=== PATIENT | male | born 1960 | race Caucasian/White ===

== ENCOUNTER 2017-01-14 15:34 | Inpatient (IN) | payer OTHER ==
[2017-01-14 20:03] LABS: % IMMATURE GRANULYOCYTES 0.2 % (0.0-1.1); ABSOLUTE IMMATURE GRANULOCYTES 0.02 10^3/uL (0.00-0.10); ADD DIFF? NO; ADD MORPH? NO; ADD SCAN? NO; ALANINE AMINOTRANSFERASE 100 IU/L (21-72); ALBUMIN 3.2 g/dL (3.5-5.0); ALKALINE PHOSPHATASE 86 IU/L (38-126); ANION GAP 9 mEq/L (8-16); ASPARTATE AMINOTRANSFERASE 33 IU/L (17-59); ATYPICAL LYMPHOCYTE FLAG 0 (0-99); BILIRUBIN,TOTAL 0.7 mg/dL (0.1-1.4); CALCIUM 9.1 mg/dL (8.5-10.4); CARBON DIOXIDE 25 mEq/l (22-31); CHLORIDE 102 mEq/L (97-110); CREATININE 0.6 mg/dL (0.7-1.3); FRAGMENT RBC FLAG 0 (0-99); GLOMERULAR FILTRATION RATE > 60; GLUCOSE 100 mg/dL (70-100); HEMOGLOBIN 9.9 g/dL (13.7-17.5); LEFT SHIFT FLG 0 (0-99); LIPEMIA HEMOLYSIS FLAG 80 (0-99); MEAN CELL HEMOGLOBIN 31.3 pg (27.9-34.1); MEAN CELL HEMOGLOBIN CONCENTR. 31.9 g/dL (32.4-36.7); MEAN CELL VOLUME 98.1 fL (81.5-99.8); MEAN PLATELET VOLUME 9.9 fL (8.7-11.7); PLATELET CLUMPS FLAG 0 (0-99); PLATELET COUNT 213 10^3/uL (150-400); POTASSIUM 3.6 mEq/L (3.5-5.2); RED BLOOD CELL COUNT 3.16 10^6/uL (4.40-6.38); RED CELL DISTRIBUTION WIDTH 13.8 % (11.5-15.2); SODIUM 136 mEq/L (134-144); TOTAL PROTEIN 6.5 g/dL (6.3-8.2)
[2017-01-14] MEDS ORDERED: ONDANSETRON DISINTEGRATING 4 MG TAB PO PRN (20:35)
[2017-01-14] MEDS ORDERED: ONDANSETRON 4 MG/2 ML VIAL IVP PRN (20:35)
[2017-01-14 20:49] LABS: SEDIMENTATION RATE 79 MM/HR (0-20)
--- NOTE | 2017-01-14 21:10 | GHP ---
[f rep st] HISTORY AND PHYSICAL DATE OF ADMISSION: 01/14/2017 CHIEF COMPLAINT: Abnormal echocardiogram. 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 He said a coupl e weeks ago he developed some fevers and chills and night sweats. There were no other symptoms at t hat time. He went to see his primary care doctor, thought he had might of had a new murmur and felt that he needed an echocardiogram anyway due to previous PVCs. He had his echocardiogram today whic h showed mitral regurgitation and a possible vegetation on the leaflet there. The patient stated th at he is actually feeling a lot better. He no longer has any fevers or chills. He does not have an y shortness of breath, chest pain. He has not had any recent dental procedures. No IV drug use. N o recent surgeries. REVIEW OF SYSTEMS: A 10-point review of systems was obtained and was negative. He does have a lot of chronic pain in his neck. His left shoulder also has some congenital abnormalities. PAST MEDICAL HISTORY: 1. Congenital disorder as above. 2. Hypothyroidism. 3. Depression. 4. Possible microcolitis. He is already on budesonide for that. MEDICATIONS: Reviewed. SOCIAL HISTORY: Quit smoking a year ago. He is using nicotine gum. Occasional alcohol. FAMILY HISTORY: Father had pancreatic cancer. PHYSICAL EXAM: VITAL SIGNS: Afebrile, blood pressure is 128/65, heart rate 77, oxygen saturation 9 4% on room air. GENERAL: The patient is well-developed but in no apparent distress. HEENT: Nonic teric sclerae. Extraocular movements intact. Moist mucous membranes. NECK: Supple with no thyrom egaly. LUNGS: Good effort. Clear to auscultation bilaterally. CARDIOVASCULAR: Regular rate and rhythm. There is 2/6 systolic murmur heard best at the apex. ABDOMEN: Positive bowel sounds, soft , nontender, nondistended. No hepatosplenomegaly. EXTREMITIES: No clubbing, cyanosis, or edema. SKIN: Without rash, intact. NEURO: Alert and oriented x3. Moving all 4 extremities equally. PSY CHIATRIC: Normal affect. LABS: White blood cell count normal, hemoglobin is 9.9. Chemistry is fairly normal. ASSESSMENT: This is a 56-year-old male presenting with heart murmur, previous fevers and chills alt abby they have resolved. The concern is endocarditis. 1. Rule out endocarditis. It is interesting the patient is not endorsing any infectious symptoms a t this time. He says that they have all resolved. He does not have elevated white blood cell count . He has no fever. I discussed the case with the Per Diem Interpreter who read the echo today. He said th at he does have mitral regurgitation and a possible vegetation. However, clinically does not seem t o have endocarditis noted and definitely has a good reason why he would have endocarditis. We will hold off on antibiotics tonight. Patient is definitely not toxic appearing. We will get Infectious Disease to see him in the morning. We need to get the echocardiogram results. Of note, [place] might be quite difficult in him as his congenital abnormalities make it quite difficult throat anatomy. He says that he needed his gallbladder taken out several years ago and they were unable to intubate him at all and he still has his gallbladder. 2. Hypertension. Continue medications. 3. Hypothyroidism. ADMISSION: Patient will be admitted under full admission status. Case discussed with his Cardiolog ist. /[id number]/MODL
[2017-01-15] MEDS: LEVOTHYROXINE 137 MCG TAB PO SCH (05:06)
[2017-01-15] MEDS: DULoxetine 60 MG CAP PO SCH (08:29)
[2017-01-15] MEDS: LISINOPRIL 10 MG TAB PO SCH (08:30)
[2017-01-15] MEDS: ACETAMINOPHEN 325 MG TAB PO PRN (08:33)
--- NOTE | 2017-01-15 08:48 | CPEKG ---
Heart Rate: 68 RR Interval: 882 P-R Interval: 160 QRSD Interval: 134 QT Interval: 424 QTC Interval: 451 P [place]: 55 QRS [place]: -53 T Wave [place]: 86 EKG Severity - ABNORMAL ECG - EKG Impression: SINUS RHYTHM EKG Impression: VENTRICULAR PREMATURE COMPLEX EKG Impression: NONSPECIFIC IVCD WITH LAD EKG Impression: ANTERIOR INFARCT, recent Electronically Signed By: Geremias Oviedo 15-Jan-2017 10:47:17
[2017-01-15] MEDS ORDERED: BUDESONIDE 9 MG PO SCH (09:00)
[2017-01-15] MEDS ORDERED: VANCOMYCIN 1.25 GM in D5W 250 ML IV SCH (10:30)
--- NOTE | 2017-01-15 10:34 | HOSPPROG ---
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 ID to see 2. start vancomycin 3. repeat blood cx after 48 hours of abx 4. colon possible source solitary kidney: no gentamicin follow vanc levels colitis: not active continue budesonice proph: lmwh dispo: inpt Subjective: blood cx + for gm+ cocci in chains. mikey d/w dr diaz. no events tele (interp by me) Objective: Vital Signs Temp Pulse Resp BP Pulse Ox 36.8 C 65 14 128/66 H 97 01/15/17 08:00 01/15/17 08:00 01/15/17 08:00 01/15/17 08:00 01/15/17 08:00 Laboratory Results 01/14/17 19:36 01/14/17 19:36 01/14/17 01/15/17 01/16/17 05:59 05:59 05:59 Intake Total 280 Balance 280 - Physical Exam Constitutional: no apparent distress, appears nourished Eyes: PERRL, anicteric sclera Ears, Nose, Mouth, Throat: moist mucous membranes, hearing normal Cardiovascular: regular rate and rhythym, systolic murmur, No tachycardia Respiratory: no respiratory distress, no rales or rhonchi Gastrointestinal: normoactive bowel sounds, soft, non-tender abdomen Genitourinary: no bladder fullness, No stewart in urethra Skin: warm, normal color Musculoskeletal: full muscle strength Neurologic: AAOx3
[2017-01-15 13:32] LABS: ALBUMIN 2.9 g/dL (3.5-5.0); BILIRUBIN,TOTAL 0.6 mg/dL (0.1-1.4); BILIRUBIN-CONJUGATED 0.5 mg/dL (0.0-0.5); BILIRUBIN-UNCONJUGATED 0.1 mg/dL (0.0-1.1); TOTAL PROTEIN 5.7 g/dL (6.3-8.2)
--- NOTE | 2017-01-15 14:00 | PDCARCONS ---
Cardiology Consult Reason for Consult: Acute mitral regurgitation Chief Complaint: Not feeling well Requesting Physician: Ivelisse History of Present Illness: 56-year-old male with severe spinal orthopedic issues related to congenital anomalies admitted to the hospital with an abnormal echocardiogram showing severe mitral regurgitation with a ruptured papillary muscle. Patient was in his usual state of good health until several weeks ago. He began experiencing 1 night of fever and chills. He was somewhat cool and clammy. He did feel a back pain that was sharp at resolved. Since that time he has been feeling rough. He has had night sweats. He has had no significant shortness of breath , PND, orthopnea. He has had no palpitations syncope or near syncope. He has no prior cardiovascular history. Surgical history includes fusion of his neck. He was post have a cholecystectomy but this was complicated by inability to be intubated. He supposedly has a deviated trachea which has made this difficult in the past. History Information - Allergies/Home Medication List Allergies/Adverse Reactions: No Known Allergies Allergy (Unverified 02/13/12 12:50) Home Medications: Budesonide [Uceris] 9 mg PO DAILY 01/14/17 [Last Taken 01/14/17] DULoxetine [Cymbalta 60 MG (*)] 60 mg PO DAILY 01/14/17 [Last Taken 01/14/17] Levothyroxine Sodium [Levothyroxine Sodium] 137 mcg PO DAILY 01/14/17 [Last Taken 01/14/17] Lisinopril [Lisinopril] 10 mg PO DAILY 01/14/17 [Last Taken 01/14/17] traZODone HCL [Trazodone HCl] 300 mg PO HS PRN 01/14/17 [Last Taken Unknown] I have personally reviewed and updated: family history, medical history, social history, surgical history - Social History Smoking Status: Former smoker Physical Exam Temp Pulse Resp BP Pulse Ox 36.8 C 71 17 124/73 H 96 01/15/17 12:00 01/15/17 12:00 01/15/17 12:00 01/15/17 12:00 01/15/17 12:00 O2 (L/minute) 1 Lab and Imaging 01/14/17 19:36 01/14/17 19:36 WBC 8.47 10^3/uL (3.80-9.50) 01/14/17 19:36 RBC 3.16 10^6/uL (4.40-6.38) L 01/14/17 19:36 Hgb 9.9 g/dL (13.7-17.5) L 01/14/17 19:36 Hct 31.0 % (40.0-51.0) L 01/14/17 19:36 MCV 98.1 fL (81.5-99.8) 01/14/17 19:36 MCH 31.3 pg (27.9-34.1) 01/14/17 19:36 MCHC 31.9 g/dL (32.4-36.7) L 01/14/17 19:36 RDW 13.8 % (11.5-15.2) 01/14/17 19:36 Plt Count 213 10^3/uL (150-400) 01/14/17 19:36 MPV 9.9 fL (8.7-11.7) 01/14/17 19:36 Neut % (Auto) 79.6 % (39.3-74.2) H 01/14/17 19:36 Lymph % (Auto) 11.1 % (15.0-45.0) L 01/14/17 19:36 [place] % (Auto) 7.0 % (4.5-13.0) 01/14/17 19:36 Eos % (Auto) 1.4 % (0.6-7.6) 01/14/17 19:36 Baso % (Auto) 0.7 % (0.3-1.7) 01/14/17 19:36 Nucleat RBC Rel Count 0.0 % (0.0-0.2) 01/14/17 19:36 Absolute Neuts (auto) 6.74 10^3/uL (1.70-6.50) H 01/14/17 19:36 Absolute Lymphs (auto) 0.94 10^3/uL (1.00-3.00) L 01/14/17 19:36 Absolute Monos (auto) 0.59 10^3/uL (0.30-0.80) 01/14/17 19:36 Absolute Eos (auto) 0.12 10^3/uL (0.03-0.40) 01/14/17 19:36 Absolute Basos (auto) 0.06 10^3/uL (0.02-0.10) 01/14/17 19:36 Absolute Nucleated RBC 0.00 10^3/uL (0-0.01) 01/14/17 19:36 Immature Gran % 0.2 % (0.0-1.1) 01/14/17 19:36 Immature Gran # 0.02 10^3/uL (0.00-0.10) 01/14/17 19:36 ESR 79 MM/HR (0-20) H 01/14/17 19:36 Sodium 136 mEq/L (134-144) 01/14/17 19:36 Potassium 3.6 mEq/L (3.5-5.2) 01/14/17 19:36 Chloride 102 mEq/L (97-110) 01/14/17 19:36 Carbon Dioxide 25 mEq/l (22-31) 01/14/17 19:36 Anion Gap 9 mEq/L (8-16) 01/14/17 19:36 BUN 16 mg/dL (7-23) 01/14/17 19:36 Creatinine 0.6 mg/dL (0.7-1.3) L 01/14/17 19:36 Estimated GFR > 60 01/14/17 19:36 Glucose 100 mg/dL (70-100) 01/14/17 19:36 Calcium 9.1 mg/dL (8.5-10.4) 01/14/17 19:36 Total Bilirubin 0.6 mg/dL (0.1-1.4) 01/15/17 12:45 Conjugated Bilirubin 0.5 mg/dL (0.0-0.5) 01/15/17 12:45 Unconjugated Bilirubin 0.1 mg/dL (0.0-1.1) 01/15/17 12:45 AST 30 IU/L (17-59) 01/15/17 12:45 ALT 86 IU/L (21-72) H 01/15/17 12:45 Alkaline Phosphatase 79 IU/L (38-126) 01/15/17 12:45 Total Protein 5.7 g/dL (6.3-8.2) L 01/15/17 12:45 Albumin 2.9 g/dL (3.5-5.0) L 01/15/17 12:45 Procalcitonin 0.23 ng/mL (0.02-0.10) H 01/14/17 19:36 A/P Assessment: Discussion: 56-year-old male admitted with a ruptured papillary muscle in acute mitral regurgitation. He is currently not in heart failure. Blood cultures do suggest the possibility of endocarditis as etiology. Recommend continued empiric antibiotics. Will plan for surgical evaluation once clinically stable. Patient will need careful surgical evaluation prior to proceeding as intubation has been difficult in the past. Will have a formal anesthesia consult to determine how best to do this. Clearly he will need a right and left heart catheterization prior intervention. At the present time there are no acute indications for surgical evaluation emergently. Past Medical History - Medical/Surgical History Hx Asthma: No Hx Chronic Respiratory Disease: No Hx Cardiac Disease: No Hx Diabetes: No Hx Renal Disease: Yes Hx Alcoholism: No Hx Cirrhosis: No Hx HIV/AIDS: No Hx Splenectomy or Spleen Trauma: No Other PMH: defect, spinal stenosis, no left lung, no left kidney, migraines - Social History Smoking Status: Former smoker Review of Systems - Review of Systems Constitutional: chills, fever. denies: weight loss EENTM: no symptoms reported Respiratory: no symptoms reported Cardiac: no symptoms reported Gastrointestinal/Abdominal: abdominal pain Genitourinary: no symptoms Musculoskelatal: back pain Skin: no symptoms Neurological: no symptoms Hematologic/Lymphatic: no symptoms reported Immunologic/allergic: no symptoms reported
--- NOTE | 2017-01-15 15:08 | GCON ---
[f rep st] CONSULTATION INFECTIOUS DISEASE CONSULTATION DATE OF CONSULTATION: 01/15/2017 REASON FOR CONSULTATION: Mitral valve endocarditis. 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 He was seen by his primary care on December 30, at which time he underwent lab work and was found to have mild anemia and a mild left shift. Over this time period, over the last month, the patient's chills and sweats have somewhat subsided. Of note , patient reports that he has had persistent diarrhea and gas which he relates to his untreated microscopic colitis. He denies any specific dental pain and he has dentures above but has not seen a dentist for 10 years but has no dental pain. The patient describes an 18-pound weight loss over the last 6 months, but no changes in his appetite. He reports a chronic low appetite, eating approximately once daily at baseline. He denies any specific skin injuries or respiratory symptoms. He has no shortness of breath. He has chronic headaches but none different than the baseline. Patient's primary care, upon evaluation on the , ordered an echocardiogram as he detected a new systolic murmur, and patient underwent echocardiogram yesterday by Dr. Oviedo in which patient was found to have an ejection fraction of 65%, mild concentric hypertrophy, mildly dilated atrium bilaterally, and a vegetation on the posterior mitral leaflet. He also had moderately elevated right ventricular systolic pressure consistent with pulmonary hypertension. Subsequently, patient was directly admitted to the hospital. Blood cultures, and labs were obtained. In less than 24 hours, 1of 2 positive blood cultures grew GPCs in chains. The patient was subsequently started on IV vancomycin. Today patient feels generally well and has no specific complaints. He does state that he started a new medicine for his microscopic colitis called Randell 6 days ago with clinical improvement in diarrhea. PAST MEDICAL HISTORY: 1. Migraines. 2. Hypothyroidism. 3. Hypertension. 4. Microscopic colitis diagnosed in June of 2016, managed by Dr. Richter. 5. 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 SOCIAL HISTORY: The patient without recent travel. He has a longstanding tobacco history with 1 pack a day but quit 1-1/2 years ago. He rarely uses alcohol, 1-2 alcoholic beverages every other weekend. He is single and has a pet treviño. FAMILY HISTORY: Reviewed and noncontributory. MEDICATIONS: Vancomycin IV 1.25 G Q 12, LISINOPRIL 10 MG DAILY, SYNTHROID 137 MCG DAILY, LOVENOX 40 MG SUBCU DAILY, CYMBALTA 60 MG DAILY, VALIUM 5 MG NEEDED, TRAZODONE 300 MG AT BEDTIME P.R.N. ALLERGIES: NKDA REVIEW OF SYSTEMS: A complete 10-point review of systems was performed and is negative, except as mentioned in the HPI. Patient is sad as his mother recently . PHYSICAL EXAMINATION: VITAL SIGNS: Blood pressure 128/66, heart rate 65, respiratory rate 14, saturation 97% on room air, temperature 36.8. He has been afebrile. GENERAL: This is a very pleasant male with obvious congenital deformities, sitting in bed in no acute distress. HEENT: The patient has no conjunctival hemorrhages. Pupils are reactive bilaterally. Oropharynx: Moist mucous membranes. Dentures above. Lower residual teeth with obvious prior dental work but no obvious caries. Gums were without signs of bleeding. NECK: No tenderness to palpation. The patient had limited range of motion of his neck from prior surgeries. CARDIOVASCULAR: Patient with a regular rate and rhythm. He has a prominent systolic murmur that was heard throughout the exam field but loudest at the apex. CHEST: Clear. He has no use of accessory respiratory muscles. ABDOMEN: Soft, nontender. Bowel sounds are present. EXTREMITIES: Patient has no splinter hemorrhages, Janeway lesions or Osler's nodes. He had onychomycosis of his toenails. SKIN: No rashes. LABORATORY DATA: White count is 8.4, hematocrit 31, platelets of 213, 79% neutrophils. Creatinine 0.6. Procalcitonin is 0.23. Blood cultures 1 out of 2 positive for GPCs in chains. ID PCR is pending. ASSESSMENT AND PLAN: This is a 56-year-old male with congenital deformity resulting in no left lung and no left kidney who was found to have a new systolic murmur in the setting of sweats and chills and subsequently had an echo that showed mitral valve vegetation and moderate to severe mitral insufficiency and now taken with blood cultures positive for gram-positive cocci in chains consistent with mitral valve endocarditis. Two primary sources of concern include dental or gastrointestinal. We will await ID of organism and do further evaluation based on presumed source. RECOMMENDATIONS: 1. Would start IV vancomycin 1.25 g IV q.12 with a trough before a 4th dose, taking patient's weight of 80 pounds. He has a normal creatinine but only 1 kidney. 2. Reviewed with patient that he will need 4-6 weeks of IV antibiotic therapy, requiring placement of PICC line after blood cultures are cleared. 3. Will place PICC line after blood cultures are negative 48 hours. Would repeat blood cultures after 48 hours of antibiotics. 4. Would obtain baseline chest x-ray. 5. Involve Cardiology to assess risks benefits of surgical intervention in the setting of moderate to severe mitral insufficiency Time was 75 minutes, greater than 50% time spent with education and counseling regarding the treatment of mitral valve endocarditis, risks and benefits, placement of PICC line, and coordination of care with primary team. /[id number]/MODL MTDD
[2017-01-15] MEDS ORDERED: IOPAMIDOL (ISOVUE-300) 100 ML BTL ONE (16:42)
[2017-01-15] MEDS ORDERED: DIAZEPAM 5 MG TAB PO ONE (17:30)
[2017-01-15] MEDS: cefTRIAXone 2 GM in D5W 50 ML IV SCH (17:44)
[2017-01-16] MEDS: LEVOTHYROXINE 137 MCG TAB PO SCH (07:17)
[2017-01-16] MEDS: cefTRIAXone 2 GM in D5W 50 ML IV SCH (09:07)
[2017-01-16] MEDS: LISINOPRIL 10 MG TAB PO SCH (09:07)
[2017-01-16] MEDS: BUDESONIDE 9 MG PO SCH (09:08)
[2017-01-16] MEDS: DULoxetine 60 MG CAP PO SCH (09:08)
--- NOTE | 2017-01-16 11:58 | SOAPPROG ---
SOAP Progress Note Assessment/Plan: Assessment: 1. Strep endocarditis. 2. Severe mitral regurgitation with vegetations/rupture of the papillary muscle. 3. Klippel Feil syndrome Discussion: CT scan yesterday shows no obstruction of the airway below the vocal cords. While the left lung is slightly smaller it does not appear to be hypoplastic. He is missing left kidney. Cultures reveal strep species. At this point he is not having signs or symptoms of congestive heart failure. He has had no recurrent fever. Medical therapy versus medical and surgical therapy have been discussed. Patient has longstanding depression related to his congenital anomalies. No absolute indication for surgery at this time. Plan: IV antibiotics. Surgical evaluation. 01/16/17 11:53 Subjective: No events overnight. In particular he denies shortness of breath, PND, orthopnea. He has had no palpitations syncope or near syncope. He has been seen by surgery. He is considering his options. Patient denies fever or chills. He has had no change in mental status. Objective: Microbiology 01/14/17 19:36 Blood Blood Panel (PCR) - Final Streptococcus 01/14/17 19:36 Blood Blood Culture - Preliminary 01/14/17 19:36 Blood Alpha Strep Not Pneumoniae 01/14/17 19:00 Blood Blood Culture - Preliminary Alpha Strep Not Pneumoniae Vital Signs Temp Pulse Resp BP Pulse Ox 36.8 C 78 20 122/43 H 90 L 01/16/17 11:34 01/16/17 11:34 01/16/17 11:34 01/16/17 11:34 01/16/17 11:34 Microbiology 01/14/17 19:36 Blood Panel (PCR) - Final Blood Streptococcus Laboratory Results 01/14/17 19:36 01/14/17 19:36 01/15/17 01/16/17 01/17/17 05:59 05:59 05:59 Intake Total 280 1820 Balance 280 1820 Physical Exam - Physical Exam General Appearance: alert, no apparent distress Cardiac/Chest: regular rate, rhythm, systolic murmur, No edema, No JVD Abdomen: normal bowel sounds, non-tender ICD10 Worksheet Patient Problems: Problems Problem Status Onset Mitral regurgitation Acute Review of Systems - Review of Systems Constitutional: denies: chills, fever EENTM: no symptoms reported Respiratory: no symptoms reported Cardiac: no symptoms reported Gastrointestinal/Abdominal: no symptoms reported Genitourinary: no symptoms
--- NOTE | 2017-01-16 12:20 | HOSPPROG ---
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 here w likely SBE Strep Bacterial endocarditis * On IV ceftriaxone * Considering surgery * Id following Mitral regurgitation due to above * Not particularly symptomatic solitary kidney colitis: not active continue budesonice Klippel-Fiel Syndrome * CT scan of the neck does not show any tracheal stenosis * Has had difficulty with intubation in the past * It appears that he does have a left lung proph: lmwh Subjective: No new complaints. Is thinking about surgery. Does feel depressed. Is having some back pain which is chronic Objective: Vital Signs Temp Pulse Resp BP Pulse Ox 36.8 C 78 20 122/43 H 90 L 01/16/17 11:34 01/16/17 11:34 01/16/17 11:34 01/16/17 11:34 01/16/17 11:34 Microbiology 01/14/17 19:36 Blood Panel (PCR) - Final Blood Streptococcus Laboratory Results 01/14/17 19:36 01/14/17 19:36 01/15/17 01/16/17 01/17/17 05:59 05:59 05:59 Intake Total 280 1820 Balance 280 1820 - Physical Exam Constitutional: no apparent distress, appears nourished, not in pain Eyes: anicteric sclera, EOMI Ears, Nose, Mouth, Throat: moist mucous membranes, hearing normal Cardiovascular: regular rate and rhythym, systolic murmur Respiratory: no respiratory distress Gastrointestinal: normoactive bowel sounds, soft, non-tender abdomen, no palpable masses Skin: warm Neurologic: AAOx3 Psychiatric: interacting appropriately, not anxious, not encephalopathic, thought process linear ICD10 Worksheet Patient Problems: Problems Problem Status Onset Mitral regurgitation Acute
[2017-01-16] MEDS: DIAZEPAM 5 MG TAB PO PRN ×2 (16:13→22:09)
[2017-01-16] MEDS: ENOXAPARIN 40 MG/0.4 ML SYR SC SCH (16:14)
--- NOTE | 2017-01-16 18:47 | PCMIDPN ---
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 Patient has underlying congenital syndrome which likely increased chances for development of infectious endocarditis over time. Suspect this is likely going to be oral christen. Agree with continued ceftriaxone coverage. Plan: 1. Continue IV ceftriaxone. 2. Follow up blood cultures. 3. Follow clinical course. 4. Plan PICC line and home IV antibiotic arrangement following clearance documentation. 01/16/17 18:44 01/16/17 18:45 Subjective: Patient is resting comfortably in his hospital bed. He denies any new complaint. States he feels somewhat better but still feels fatigued. No fevers or chills currently. Tolerating ceftriaxone. Objective: Ceftriaxone #2 Vital Signs Temp Pulse Resp BP Pulse Ox 36.7 C 67 17 111/67 97 01/16/17 15:35 01/16/17 15:35 01/16/17 15:35 01/16/17 15:35 01/16/17 15:35 Microbiology 01/14/17 19:36 Blood Panel (PCR) - Final Blood Streptococcus Laboratory Results 01/14/17 19:36 01/14/17 19:36 01/15/17 01/16/17 01/17/17 05:59 05:59 05:59 Intake Total 280 1820 150 Balance 280 1820 150 ESR 79 MM/HR (0-20) H 01/14/17 19:36 - Physical Exam General Appearance: WD/WN, alert, no apparent distress, non-toxic Respiratory: lungs clear, normal breath sounds, No respiratory distress Cardiac/Chest: regular rate, rhythm, systolic murmur, No tachycardia, No friction rub Extremities: non-tender, normal inspection Skin: normal color, warm/dry, No rash Neuro/Psych: alert, normal mood/affect, oriented x 3 ICD10 Worksheet Patient Problems: Problems Problem Status Onset Mitral regurgitation Acute
[2017-01-17] MEDS: LEVOTHYROXINE 137 MCG TAB PO SCH (07:50)
[2017-01-17] MEDS: ACETAMINOPHEN 325 MG TAB PO PRN ×3 (09:42→21:02)
[2017-01-17] MEDS: DIAZEPAM 5 MG TAB PO PRN ×3 (09:43→21:02)
[2017-01-17] MEDS: ENOXAPARIN 40 MG/0.4 ML SYR SC SCH (09:43)
[2017-01-17] MEDS: DULoxetine 60 MG CAP PO SCH (09:43)
[2017-01-17] MEDS: cefTRIAXone 2 GM in D5W 50 ML IV SCH (09:44)
[2017-01-17] MEDS: LISINOPRIL 10 MG TAB PO SCH (09:44)
[2017-01-17] MEDS: BUDESONIDE 9 MG PO SCH (09:47)
--- NOTE | 2017-01-17 13:05 | HOSPPROG ---
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 here w likely SBE alpha Strep Bacterial endocarditis * On IV ceftriaxone * Considering surgery * Id following * repeat cultures pending Mitral regurgitation due to above * Not particularly symptomatic solitary kidney colitis: not active continue budesonice Klippel-Fiel Syndrome * CT scan of the neck does not show any tracheal stenosis * Has had difficulty with intubation in the past * It appears that he does have a left lung proph: lmwh Subjective: no new complaints Objective: Vital Signs Temp Pulse Resp BP Pulse Ox 36.7 C 71 14 121/61 H 93 01/17/17 11:42 01/17/17 11:42 01/17/17 11:42 01/17/17 11:42 01/17/17 11:42 Microbiology 01/14/17 19:00 Blood Culture - Final Blood Streptococcus Anginosus Group 01/14/17 19:36 Blood Culture - Final Blood Streptococcus Anginosus Blood Panel (PCR) - Final Streptococcus Laboratory Results 01/14/17 19:36 01/14/17 19:36 01/16/17 01/17/17 01/18/17 05:59 05:59 05:59 Intake Total 1820 450 500 Balance 1820 450 500 - Physical Exam Constitutional: no apparent distress, appears nourished, not in pain Eyes: anicteric sclera, EOMI Ears, Nose, Mouth, Throat: moist mucous membranes, hearing normal Cardiovascular: regular rate and rhythym, systolic murmur Respiratory: no respiratory distress Neurologic: AAOx3 Psychiatric: interacting appropriately, not anxious, not encephalopathic, thought process linear ICD10 Worksheet Patient Problems: Problems Problem Status Onset Mitral regurgitation Acute
--- NOTE | 2017-01-17 16:57 | PCMIDPN ---
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 Agree with continued ceftriaxone coverage. suspect 4 week duration will be plenty. Patient's vegetation is greater than 1 cm in size. We will need to do repeat echocardiogram early to mid this week in order to determine whether the vegetation size is decreasing with treatment. If not he may need valve replacement surgery. Plan: 1. Continue IV ceftriaxone. 2. Follow up blood cultures. 3. Follow clinical course. 4. Plan PICC line and home IV antibiotic arrangement following clearance documentation. Subjective: Patient is resting in his hospital bed. He notes no new complaints. Appears to be tolerating the ceftriaxone without difficulty. No rash. No fevers or chills. Objective: Ceftriaxone # 3 Vital Signs Temp Pulse Resp BP Pulse Ox 36.6 C 67 16 117/62 97 01/17/17 16:00 01/17/17 16:00 01/17/17 16:00 01/17/17 16:00 01/17/17 16:00 Microbiology 01/14/17 19:00 Blood Culture - Final Blood Streptococcus Anginosus Group 01/14/17 19:36 Blood Culture - Final Blood Streptococcus Anginosus Blood Panel (PCR) - Final Streptococcus Laboratory Results 01/14/17 19:36 01/14/17 19:36 01/16/17 01/17/17 01/18/17 05:59 05:59 05:59 Intake Total 1820 450 500 Balance 1820 450 500 ESR 79 MM/HR (0-20) H 01/14/17 19:36 - Physical Exam General Appearance: WD/WN, alert, no apparent distress, non-toxic Respiratory: lungs clear, normal breath sounds, No respiratory distress Cardiac/Chest: regular rate, rhythm, systolic murmur, No tachycardia Extremities: non-tender, normal inspection Skin: normal color, warm/dry, No rash Neuro/Psych: alert, normal mood/affect, oriented x 3 ICD10 Worksheet Patient Problems: Problems Problem Status Onset Mitral regurgitation Acute
[2017-01-18] MEDS: LEVOTHYROXINE 137 MCG TAB PO SCH (05:23)
[2017-01-18] MEDS: ENOXAPARIN 40 MG/0.4 ML SYR SC SCH (08:21)
[2017-01-18] MEDS: LISINOPRIL 10 MG TAB PO SCH (08:22)
[2017-01-18] MEDS: ACETAMINOPHEN 325 MG TAB PO PRN ×2 (08:22→17:50)
[2017-01-18] MEDS: DIAZEPAM 5 MG TAB PO PRN ×2 (08:22→21:08)
[2017-01-18] MEDS: DULoxetine 60 MG CAP PO SCH (08:22)
[2017-01-18] MEDS: cefTRIAXone 2 GM in D5W 50 ML IV SCH (08:23)
[2017-01-18] MEDS: BUDESONIDE 9 MG PO SCH (08:30)
--- NOTE | 2017-01-18 11:30 | HOSPPROG ---
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7 C 63 18 118/66 94 01/18/17 08:00 01/18/17 08:00 01/18/17 08:00 01/18/17 08:22 01/18/17 08:00 Microbiology 01/14/17 19:00 Blood Culture - Final Blood Streptococcus Anginosus Group 01/14/17 19:36 Blood Culture - Final Blood Streptococcus Anginosus Blood Panel (PCR) - Final Streptococcus Laboratory Results 01/14/17 19:36 01/14/17 19:36 01/17/17 01/18/17 01/19/17 05:59 05:59 05:59 Intake Total 450 800 Balance 450 800 - Physical Exam Constitutional: no apparent distress, appears nourished, not in pain Eyes: anicteric sclera, EOMI Ears, Nose, Mouth, Throat: moist mucous membranes Cardiovascular: regular rate and rhythym, systolic murmur Respiratory: no respiratory distress Neurologic: AAOx3 Psychiatric: interacting appropriately, not anxious, not encephalopathic, thought process linear ICD10 Worksheet Patient Problems: Problems Problem Status Onset Mitral regurgitation Acute
--- NOTE | 2017-01-18 15:08 | PCMIDPN ---
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 Agree with continued ceftriaxone coverage. suspect 4 week duration will be plenty. Patient's vegetation is greater than 1 cm in size. We will need to do repeat echocardiogram early to mid this week in order to determine whether the vegetation size is decreasing with treatment. If not he may need valve replacement surgery. Plan: 1. Continue IV ceftriaxone. 2. Follow up blood cultures to be drawn today. 3. Follow clinical course. 4. Plan PICC line and home IV antibiotic arrangement following clearance documentation. 01/18/17 15:07 Subjective: Patient is resting in his hospital room. He has no new complaints. Denies fevers or chills. No rash. Objective: Ceftriaxone #4 Vital Signs Temp Pulse Resp BP Pulse Ox 36.8 C 73 18 118/58 L 95 01/18/17 12:00 01/18/17 12:00 01/18/17 12:00 01/18/17 12:00 01/18/17 12:00 Microbiology 01/14/17 19:00 Blood Culture - Final Blood Streptococcus Anginosus Group 01/14/17 19:36 Blood Culture - Final Blood Streptococcus Anginosus Blood Panel (PCR) - Final Streptococcus Laboratory Results 01/14/17 19:36 01/14/17 19:36 01/17/17 01/18/17 01/19/17 05:59 05:59 05:59 Intake Total 450 800 Balance 450 800 ESR 79 MM/HR (0-20) H 01/14/17 19:36 - Physical Exam General Appearance: WD/WN, alert, no apparent distress, non-toxic Respiratory: lungs clear, normal breath sounds, No respiratory distress Cardiac/Chest: regular rate, rhythm, systolic murmur, No tachycardia, No diastolic murmur, No irregularly irregular Extremities: non-tender, normal inspection Skin: normal color, warm/dry, No rash Neuro/Psych: alert, normal mood/affect, oriented x 3 ICD10 Worksheet Patient Problems: Problems Problem Status Onset Mitral regurgitation Acute
[2017-01-19] MEDS: LEVOTHYROXINE 137 MCG TAB PO SCH (05:18)
[2017-01-19] MEDS: ACETAMINOPHEN 325 MG TAB PO PRN ×2 (06:40→15:53)
[2017-01-19] MEDS: cefTRIAXone 2 GM in D5W 50 ML IV SCH (08:54)
[2017-01-19] MEDS: LISINOPRIL 10 MG TAB PO SCH (08:57)
[2017-01-19] MEDS: DULoxetine 60 MG CAP PO SCH (08:57)
[2017-01-19] MEDS: ENOXAPARIN 40 MG/0.4 ML SYR SC SCH (08:58)
[2017-01-19] MEDS: BUDESONIDE 9 MG PO SCH (12:02)
[2017-01-19] MEDS ORDERED: BISMUTH SUBSALICYLATE 524 MG/30 ML UDL PO PRN (13:28)
[2017-01-19] MEDS: BISMUTH SUBSALICYLATE 262 MG CHEWABLE TAB PO PRN ×2 (14:05→18:52)
--- NOTE | 2017-01-19 14:25 | PDANEPAE ---
ANE History of Present Illness Airway evaluation Patient has endocarditis. No procedures planned. 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 [address] end[address]rache[address] tube. Cholecystectomy 2003 cancelled after [address] ETT. - Smoking Hx Smoking Status: Former smoker - Alcohol Use Alcohol Use: Rarely (1996 C 2 to C3 fusion. [address] tube.) - Family Anes Hx Family Anes Hx: neg - N/A (Difficult airway 1996 ACD and F 1996. [address] endotrache[address] tube.) ANE Labs/Vital Signs - Labs Result Diagrams: 01/14/17 19:36 01/14/17 19:36 - Vital Signs Blood Pressure: 129/69 Heart Rate: 71 Respiratory Rate: 16 O2 Sat (%): 96 Height: 176.53 cm Weight: 79.3 kg ANE Physical Exam - Airway Neck exam: decreased ROM, increased neck circumference, short neck Mallampati Score: Class 4 Mouth exam: poor dentition - ASA Status ASA Status: III (Stiff rigid neck. ) ANE Anesthesia Plan Specialized Airway: fiberoptic intubation (If procedure is required please request 2 anesthesiologists for procedure airway management. Awake fiberoptic ETT placement. Tracheostomy will be very difficult secondary to short neck)
--- NOTE | 2017-01-19 15:02 | HOSPPROG ---
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 * CT scan of the neck does not show any tracheal stenosis * Has had difficulty with intubation in the past * It appears that he does have a left lung proph: lmwh Subjective: No new complaints Objective: Vital Signs Temp Pulse Resp BP Pulse Ox 36.4 C 71 16 129/69 H 96 01/19/17 14:42 01/19/17 14:47 01/19/17 14:47 01/19/17 14:47 01/19/17 14:47 Laboratory Results 01/14/17 19:36 01/14/17 19:36 01/18/17 01/19/17 01/20/17 05:59 05:59 05:59 Intake Total 800 725 Balance 800 725 - Physical Exam Constitutional: no apparent distress, appears nourished, not in pain Eyes: anicteric sclera, EOMI Ears, Nose, Mouth, Throat: moist mucous membranes, hearing normal Cardiovascular: regular rate and rhythym, no murmur, rub, or gallop, systolic murmur Respiratory: no respiratory distress, no rales or rhonchi, clear to auscultation Neurologic: AAOx3 Psychiatric: interacting appropriately, not anxious, not encephalopathic, thought process linear ICD10 Worksheet Patient Problems: Problems Problem Status Onset Mitral regurgitation Acute
--- NOTE | 2017-01-19 15:20 | PCMIDPN ---
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 Agree with continued ceftriaxone coverage. suspect 4 week duration will be plenty. Patient's vegetation is greater than 1 cm in size. We will need to do repeat echocardiogram early to mid this week in order to determine whether the vegetation size is decreasing with treatment. If not he may need valve replacement surgery. Plan: 1. Continue IV ceftriaxone. 2. Follow up blood cultures remain negative continue follow.. 3. Follow clinical course. 4. Follow-up echocardiogram in 1-2 days. 01/18/17 15:07 01/19/17 16:33 Subjective: Patient is doing well. He has no new complaint. Continues to tolerate the ceftriaxone without issue. No fevers or chills. Objective: Ceftriaxone #5 Vital Signs Temp Pulse Resp BP Pulse Ox 36.4 C 71 16 129/69 H 96 01/19/17 14:42 01/19/17 14:47 01/19/17 14:47 01/19/17 14:47 01/19/17 14:47 Laboratory Results 01/14/17 19:36 01/14/17 19:36 01/18/17 01/19/17 01/20/17 05:59 05:59 05:59 Intake Total 800 725 Balance 800 725 ESR 79 MM/HR (0-20) H 01/14/17 19:36 - Physical Exam General Appearance: WD/WN, alert, no apparent distress, non-toxic Respiratory: lungs clear, normal breath sounds, No respiratory distress Cardiac/Chest: regular rate, rhythm, No tachycardia Extremities: non-tender, normal inspection Skin: normal color, warm/dry, No rash Neuro/Psych: alert, normal mood/affect, oriented x 3 ICD10 Worksheet Patient Problems: Problems Problem Status Onset Mitral regurgitation Acute
[2017-01-19] MEDS: DIAZEPAM 5 MG TAB PO PRN (20:12)
[2017-01-19] MEDS: LOPERAMIDE HCL 2 MG CAP PO PRN (20:17)
[2017-01-20] MEDS: LEVOTHYROXINE 137 MCG TAB PO SCH (06:14)
[2017-01-20] MEDS: BUDESONIDE 9 MG PO SCH (07:18)
[2017-01-20] MEDS: ENOXAPARIN 40 MG/0.4 ML SYR SC SCH (08:42)
[2017-01-20] MEDS: DULoxetine 60 MG CAP PO SCH (08:43)
[2017-01-20] MEDS: LISINOPRIL 10 MG TAB PO SCH (08:43)
[2017-01-20] MEDS: cefTRIAXone 2 GM in D5W 50 ML IV SCH (08:44)
[2017-01-20] MEDS: ACETAMINOPHEN 325 MG TAB PO PRN (10:12)
[2017-01-20] MEDS: BISMUTH SUBSALICYLATE 262 MG CHEWABLE TAB PO PRN ×3 (10:13→16:52)
--- NOTE | 2017-01-20 13:47 | PCMIDPN ---
Assessment/Plan: Assessment/Plan: 1. STrep anginosus MV endocarditis: - Currently on Ceftriaxone 2g daily - f/u blood cx from 01/16/17 ngtd - Inital TTE from 01/14/17. -will order f/u TTE and get picc line placed. -Will need prolonged course of therapy. -check f/u labs in AM. - care coordinated with Dr. Hoda valenzuela ceftraixone 2g daily Subjective: afebrile. c/o achiness all over but states that is chronic. he denies sob. had chronic cough. denies abd pain or diarrhea, but states he has microscopic colilitis and thus his bowels can fluctuate. Objective: Vital Signs Temp Pulse Resp BP Pulse Ox 36.7 C 73 16 117/72 94 01/20/17 12:00 01/20/17 12:00 01/20/17 12:00 01/20/17 12:00 01/20/17 12:00 Laboratory Results 01/14/17 19:36 01/14/17 19:36 01/19/17 01/20/17 01/21/17 05:59 05:59 05:59 Intake Total 725 895 50 Balance 725 895 50 ESR 79 MM/HR (0-20) H 01/14/17 19:36 - Physical Exam General Appearance: alert, no apparent distress Respiratory: lungs clear Cardiac/Chest: regular rate, rhythm, systolic murmur Extremities: No swelling Abdomen: normal bowel sounds, non-tender, soft, No distended Skin: No rash ICD10 Worksheet Patient Problems: Problems Problem Status Onset Mitral regurgitation Acute
[2017-01-20] MEDS ORDERED: ALTEPLASE 2 MG VIAL IVP PRN (13:57)
--- NOTE | 2017-01-20 15:30 | HOSPPROG ---
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 here w likely SBE alpha Strep Bacterial endocarditis * On IV ceftriaxone * Considering surgery - may be reasonable to treat medically and follow the mitral regurgitation * Id following * repeat cultures negative so far * Repeat echo today to evaluate vegetation * If better then possibly discharge on IV antibiotics but would probably have Cardiology weigh in on final opinion * Place PICC line Mitral regurgitation due to above * Not particularly symptomatic * Probable repeat echo this week 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 * CT scan of the neck does not show any tracheal stenosis * Has had difficulty with intubation in the past * It appears that he does have a left lung proph: lmwh Subjective: No new complaints Objective: Vital Signs Temp Pulse Resp BP Pulse Ox 36.7 C 73 16 117/72 94 01/20/17 12:00 01/20/17 12:00 01/20/17 12:00 01/20/17 12:00 01/20/17 12:00 Laboratory Results 01/14/17 19:36 01/14/17 19:36 01/19/17 01/20/17 01/21/17 05:59 05:59 05:59 Intake Total 725 895 50 Balance 725 895 50 - Physical Exam Constitutional: no apparent distress, appears nourished, not in pain Eyes: anicteric sclera, EOMI Ears, Nose, Mouth, Throat: moist mucous membranes, hearing normal Cardiovascular: regular rate and rhythym, systolic murmur Respiratory: no respiratory distress Skin: warm Neurologic: AAOx3 Psychiatric: interacting appropriately, not anxious, not encephalopathic, thought process linear ICD10 Worksheet Patient Problems: Problems Problem Status Onset Mitral regurgitation Acute
[2017-01-20] MEDS: DIAZEPAM 5 MG TAB PO PRN (20:56)
[2017-01-21] MEDS: LEVOTHYROXINE 137 MCG TAB PO SCH (05:10)
[2017-01-21 05:18] LABS: % IMMATURE GRANULYOCYTES 0.3 % (0.0-1.1); ABSOLUTE IMMATURE GRANULOCYTES 0.03 10^3/uL (0.00-0.10); ADD DIFF? NO; ADD MORPH? NO; ADD SCAN? NO; ATYPICAL LYMPHOCYTE FLAG 0 (0-99); FRAGMENT RBC FLAG 0 (0-99); HEMATOCRIT 31.6 % (40.0-51.0); HEMOGLOBIN 10.1 g/dL (13.7-17.5); LEFT SHIFT FLG 0 (0-99); LIPEMIA HEMOLYSIS FLAG 80 (0-99); MEAN CELL HEMOGLOBIN 31.4 pg (27.9-34.1); MEAN CELL VOLUME 98.1 fL (81.5-99.8); MEAN PLATELET VOLUME 9.5 fL (8.7-11.7); PLATELET CLUMPS FLAG 0 (0-99); PLATELET COUNT 189 10^3/uL (150-400); RED BLOOD CELL COUNT 3.22 10^6/uL (4.40-6.38)
[2017-01-21 05:33] LABS: ALANINE AMINOTRANSFERASE 73 IU/L (21-72); ALKALINE PHOSPHATASE 72 IU/L (38-126); ANION GAP 6 mEq/L (8-16); ASPARTATE AMINOTRANSFERASE 28 IU/L (17-59); BILIRUBIN,TOTAL 0.5 mg/dL (0.1-1.4); CALCIUM 8.9 mg/dL (8.5-10.4); CARBON DIOXIDE 33 mEq/l (22-31); CHLORIDE 96 mEq/L (97-110); CREATININE 0.7 mg/dL (0.7-1.3); GLOMERULAR FILTRATION RATE > 60; GLUCOSE 86 mg/dL (70-100); POTASSIUM 4.8 mEq/L (3.5-5.2); SODIUM 135 mEq/L (134-144)
[2017-01-21] MEDS: BUDESONIDE 9 MG PO SCH (08:19)
[2017-01-21] MEDS: ACETAMINOPHEN 325 MG TAB PO PRN ×3 (08:30→20:17)
[2017-01-21] MEDS: DIAZEPAM 5 MG TAB PO PRN ×2 (08:30→21:11)
[2017-01-21] MEDS: ENOXAPARIN 40 MG/0.4 ML SYR SC SCH (08:31)
[2017-01-21] MEDS: DULoxetine 60 MG CAP PO SCH (08:31)
[2017-01-21] MEDS: cefTRIAXone 2 GM in D5W 50 ML IV SCH (08:31)
[2017-01-21] MEDS: LISINOPRIL 10 MG TAB PO SCH (08:58)
--- NOTE | 2017-01-21 11:02 | ECHO ---
[id number] + + [address] : : [place] [address] : : [phone] + + Adult Echocardiographic Report + -------+ :Name: ROBI HELMS WStudy Date: 01/21/2017 09:16 AM : : Hospital Admission Number: [id number] Locati on: 218: :: 1960 Gender: Male Height: 69 in : :Age: 56 yrs Race: WH Weight: 174 lb : :Reason For Study: Eval Mitral Valve : : BSA: 1.9 meter s2 : :History: Known MV Endocarditis : + -------+ MMode/2D Measurements \T\ Calculations IVSd: 1.0 cm LVIDd: 5.2 cm FS: 34.1 % MV Diam: 3.5 cm LVPWd: 1.0 cm LVIDs: 3.5 cm EDV(Teich): 132.0 ml ESV(Teich): 49.3 ml EF(Teich): 62.7 % Ao root diam: 3.4 cm LVOT diam: 2.1 cm ACS: 2.3 cm LVOT area: 3.5 cm2 Normal Measurement Values: + + :LVIDd (3.5-5.7cm) IVSd (0.6-1.1cm) LVPWd (0.6-1.1cm) Aortic Root (2.0-3.7cm)Left Atrium (1.5-4.0cm): :LV Vol(d) (76-115ml) LV Vol(s) (29-48ml) Ejec Fraction (50-65%)PV Erickson (0.6- 1.2m/s) TV Erickson (0.4-1.0m/s) : :MV E Erickson (0.8-1.0m/s)MV A Erickson (0.3-1.0m/s)LVOT Erickson (0.7-1.2m/s) Asc Ao Erickson ( 0.9-1.8m/s) : + + Doppler Measurements \T\ Calculations MV E max erickson: MV V2 mean: LV V1 max: MR max erickson: 90.5 cm/sec 73.9 cm/sec 108.3 cm/sec 474.4 cm/sec MV A max erickson: MV mean P.4 mmHgLV V1 max PG: MR max P.6 cm/sec MV V2 VTI: 35.4 cm 4.7 mmHg 90.1 mmHg MV E/A: 1.3 MV area (1 diam): LV V1 mean P.2 mmHg 9.6 cm2 LV V1 mean: MVA(VTI): 2.2 cm2 66.6 cm/sec MV Flow area(1diam):LV V1 VTI: 23.0 cm 9.6 cm2 MR(RF 1 diam): SV(MV 1 diam): PA V2 max: TR max erickson: 14.2 % 340.4 ml 81.4 cm/sec 290.5 cm/sec SI(MV 1 diam): PA max PG: TR max P.7 mmHg 33.8 mmHg 174.8 ml/m2 RAP systole: SV(LVOT): 79.6 ml 5.0 mmHg RVSP(TR): 38.8 mmHg RF(MV,LVOT) (1diam): 0.77 Left Ventricle The left ventricle is normal in size. There is mild concentric left ventricular hypertrophy. The left ventricular ejection fraction is normal. There is Doppler evidence for diastolic dysfunction. Ejection Fraction = 64%. The left ventricular wall motion is normal. Right Ventricle The right ventricle is normal in size and function. Atria The left atrium is mildly dilated. Right atrial size is normal. Mitral Valve There is a known hypermobile posterior mitral valve leaflet vegetation. There is severe mitral valve prolapse. Prolapse of the posterior mitral leaflet(s). There is moderate to severe mitral regurgitation. Tricuspid Valve Normal tricuspid valve. There is mild tricuspid regurgitation. Right ventricular systolic pressure is normal. Aortic Valve The aortic valve is normal in structure and function. The aortic valve is trileaflet. There is no aortic stenosis. There is no aortic insufficiency. Pulmonic Valve The pulmonic valve is normal in structure and function. There is no pulmonic valvular regurgitation. Great Vessels The aortic root is normal size. Pericardium/Pleural There is no pericardial effusion. Conclusion A complete two-dimensional transthoracic echocardiogram was performed (2D, M-mode, Doppler and color flow Doppler). Normal LV size and systolic function. There is mild concentric left ventricular hypertrophy. There is Doppler evidence for diastolic dysfunction. Ejection Fraction = 64%. The left ventricular wall motion is normal. The right ventricle is normal in size and function. The left atrium is mildly dilated. There is severe mitral valve prolapse. Prolapse of the posterior mitral leaflet(s). There is a known hypermobile posterior mitral valve leaflet vegetation. This appears unchanged compared to a prior study from January 14, 2017. There is moderate to severe mitral regurgitation. MR vena contracta is .9cm with a MR Fraction of 12% There is mild tricuspid regurgitation. Right ventricular systolic pressure is normal. The aortic valve is normal in structure and function. The aortic valve is trileaflet. There is no pericardial effusion. Final Reading Physician: Jennifer Reyes signed on 01/21/2017 11:01 AM Ordering Physician: Milana Calero Performed By: Ranjith Young, GINGERCS
--- NOTE | 2017-01-21 13:22 | SOAPPROG ---
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 He has moderate to severe mitral insufficiency. This is also likely chronic given the fact that he has been stable and has not manifested any heart failure symptoms. Additionally, he has mild left atrial enlargement which argues for the chronicity of his mitral valve disease. He recently he has not been febrile. He has no evidence of leukocytosis and repeat blood cultures from the are thus far normal . He does have a rather large and complex posterior leaflet vegetation. His risk of surgery is not inconsequential however given his congenital abnormalities and difficult airway. Therefore, I think that we can manage him conservatively and medically this would be advantageous. Certainly, if he should develop evidence of heart failure or manifest symptoms of emboli that would argue more towards an upfront surgical strategy. For the time being I think that we can continue antibiotic therapy. Infectious Disease has recommended a 4 week course of antibiotics. Will plan for a surveillance echocardiogram here within the next 2 weeks. Can follow up with me in the outpatient setting within 1-2 weeks of discharge . I did order an EKG. At this point, we will sign off. 01/21/17 13:21 Subjective: He states that he is feeling well. He slept well last night. He has no symptoms of dyspnea. He notes no chest pain and denies neurologic symptoms. He had a follow-up echocardiogram today. There is a full and separately dictated report on the chart. Essentially, this does not indicate any change in his mitral valve vegetation size or degree of mitral insufficiency. Objective: Vital Signs Temp Pulse Resp BP Pulse Ox 36.5 C 71 16 95/58 L 91 L 01/21/17 08:00 01/21/17 08:00 01/21/17 08:00 01/21/17 08:00 01/21/17 08:00 Laboratory Results 01/21/17 05:10 01/21/17 05:10 01/20/17 01/21/17 01/22/17 05:59 05:59 05:59 Intake Total 895 750 Balance 895 750 Physical Exam - Physical Exam General Appearance: WD/WN Respiratory: lungs clear Cardiac/Chest: regular rate, rhythm, systolic murmur ( 3/6 holosystolic murmur at the apex), No edema, No gallop, No JVD Peripheral Pulses: 2+: carotid (R), carotid (L) Abdomen: non-tender Rectal: deferred Neuro/Psych: normal mood/affect ICD10 Worksheet Patient Problems: Problems Problem Status Onset Mitral regurgitation Acute
[2017-01-21] MEDS ORDERED: NS 500 ML IV ONE (15:30)
--- NOTE | 2017-01-21 15:30 | HOSPPROG ---
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 Mitral regurgitation due to above * Not particularly symptomatic * Probable repeat echo this week solitary kidney CHO/Migraine colitis: not active Klippel-Fiel Syndrome * CT scan of the neck does not show any tracheal stenosis * Has had difficulty with intubation in the past * It appears that he does have a left lung proph: lmwh Plan: I am unclear why he is having borderline low BP. Other than a CHO, he is not symptomatic. He continues on Rocephin. I'll stop the Lisinopril, although it was not given today. He is Afebrile, feels fine. Will check a procalcitonin to see if it has changed. Give gentle IVF for BP support. Keep overnight. Subjective: CHO. Not like a typical migraine. Low BP. NO CP or SOB. NO N/V. Objective: Vital Signs Temp Pulse Resp BP Pulse Ox 36.5 C 71 16 95/58 L 91 L 01/21/17 08:00 01/21/17 08:00 01/21/17 08:00 01/21/17 08:00 01/21/17 08:00 Laboratory Results 01/21/17 05:10 01/21/17 05:10 01/20/17 01/21/17 01/22/17 05:59 05:59 05:59 Intake Total 895 750 Balance 895 750 - Physical Exam Constitutional: no apparent distress, appears nourished, not in pain Eyes: PERRL, EOMI Ears, Nose, Mouth, Throat: moist mucous membranes, hearing normal, ears appear normal Cardiovascular: regular rate and rhythym Respiratory: no respiratory distress Gastrointestinal: normoactive bowel sounds, soft, non-tender abdomen Skin: warm Neurologic: AAOx3, sensation intact bilaterally Psychiatric: interacting appropriately, not anxious, not encephalopathic ICD10 Worksheet Patient Problems: Problems Problem Status Onset Mitral regurgitation Acute
--- NOTE | 2017-01-21 17:14 | PCMIDPN ---
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 Agree with continued ceftriaxone coverage. Suspect 4 week duration will be plenty. Patient's vegetation does not appear to a significantly reduced in size from this morning's echocardiogram. Valve replacement surgeries becoming more likely. Plan: 1. Continue IV ceftriaxone. 2. Follow up blood cultures remain negative continue follow. 3. Follow clinical course. 4. Follow cardiothoracic surgery plans. 01/18/17 15:07 01/19/17 16:33 01/21/17 18:27 Subjective: Patient is resting comfortably in his chair in his room. He denies any new complaint. Essentially asymptomatic apart from headache. No fevers or chills. Tolerating ceftriaxone without issue. Objective: Ceftriaxone # 7 Vital Signs Temp Pulse Resp BP Pulse Ox 36.7 C 78 16 110/57 L 94 01/21/17 16:00 01/21/17 16:00 01/21/17 16:00 01/21/17 16:00 01/21/17 16:00 Laboratory Results 01/21/17 05:10 01/21/17 05:10 01/20/17 01/21/17 01/22/17 05:59 05:59 05:59 Intake Total 895 750 240 Balance 895 750 240 ESR 79 MM/HR (0-20) H 01/14/17 19:36 - Physical Exam General Appearance: WD/WN, alert, no apparent distress, non-toxic Respiratory: lungs clear, normal breath sounds, No respiratory distress Cardiac/Chest: regular rate, rhythm, systolic murmur, No tachycardia Skin: normal color, warm/dry, No rash Neuro/Psych: alert, normal mood/affect, oriented x 3 ICD10 Worksheet Patient Problems: Problems Problem Status Onset Mitral regurgitation Acute
[2017-01-21 19:51] VITALS: TEMP 97.9
[2017-01-21] MEDS: LOPERAMIDE HCL 2 MG CAP PO PRN (21:11)
[2017-01-22 04:32] VITALS: RESP 16
[2017-01-22] MEDS: LEVOTHYROXINE 137 MCG TAB PO SCH (05:28)
[2017-01-22 05:48] LABS: % IMMATURE GRANULYOCYTES 0.5 % (0.0-1.1); ABSOLUTE IMMATURE GRANULOCYTES 0.04 10^3/uL (0.00-0.10); ADD DIFF? NO; ADD MORPH? NO; ADD SCAN? NO; ATYPICAL LYMPHOCYTE FLAG 0 (0-99); FRAGMENT RBC FLAG 0 (0-99); HEMATOCRIT 32.5 % (40.0-51.0); HEMOGLOBIN 10.3 g/dL (13.7-17.5); LEFT SHIFT FLG 0 (0-99); LIPEMIA HEMOLYSIS FLAG 80 (0-99); MEAN CELL HEMOGLOBIN 31.3 pg (27.9-34.1); MEAN CELL HEMOGLOBIN CONCENTR. 31.7 g/dL (32.4-36.7); MEAN CELL VOLUME 98.8 fL (81.5-99.8); PLATELET CLUMPS FLAG 20 (0-99); PLATELET COUNT 181 10^3/uL (150-400); RED BLOOD CELL COUNT 3.29 10^6/uL (4.40-6.38); RED CELL DISTRIBUTION WIDTH 14.1 % (11.5-15.2)
[2017-01-22 05:54] LABS: ANION GAP 5 mEq/L (8-16); CALCIUM 9.1 mg/dL (8.5-10.4); CARBON DIOXIDE 33 mEq/l (22-31); CHLORIDE 99 mEq/L (97-110); CREATININE 0.7 mg/dL (0.7-1.3); GLOMERULAR FILTRATION RATE > 60; GLUCOSE 84 mg/dL (70-100); POTASSIUM 5.2 mEq/L (3.5-5.2); SODIUM 137 mEq/L (134-144)
[2017-01-22 08:01] VITALS: BP 111/69; PULSE 72
[2017-01-22] MEDS: BUDESONIDE 9 MG PO SCH (09:16)
[2017-01-22] MEDS: DIAZEPAM 5 MG TAB PO PRN ×2 (09:25→16:52)
[2017-01-22] MEDS: ACETAMINOPHEN 325 MG TAB PO PRN ×2 (09:25→16:51)
[2017-01-22] MEDS: DULoxetine 60 MG CAP PO SCH (09:26)
[2017-01-22] MEDS: ENOXAPARIN 40 MG/0.4 ML SYR SC SCH (09:26)
[2017-01-22] MEDS: cefTRIAXone 2 GM in D5W 50 ML IV SCH (09:26)
[2017-01-22 11:18] VITALS: O2SAT 91
--- NOTE | 2017-01-22 12:21 | PCMIDPN ---
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 Reviewed cards note, lean towards medical management bc of risks associated with surgery due to congenital deformities. --dc okay today --ceftriaxone 2gm IV daily through 02/13 --follow-up with Dr. Cohn end of next week. Appointment in discharge paperwork Subjective: Feeling better. Desires discharge to attend his mother's . No pain outside of baseline pain Objective: Vital Signs Temp Pulse Resp BP Pulse Ox 36.6 C 72 16 111/69 91 L 01/22/17 04:28 01/22/17 08:00 01/22/17 04:28 01/22/17 08:00 01/22/17 11:18 Microbiology 01/16/17 13:00 Blood Culture - Final Blood 01/16/17 12:54 Blood Culture - Final Blood Laboratory Results 01/22/17 05:30 01/22/17 05:30 01/21/17 01/22/17 01/23/17 05:59 05:59 05:59 Intake Total 750 1740 Balance 750 1740 ESR 79 MM/HR (0-20) H 01/14/17 19:36 - Physical Exam General Appearance: alert, no apparent distress EENT: poor dentition, No scleral icterus, No thrush Respiratory: lungs clear, No accessory muscle use Cardiac/Chest: regular rate, rhythm, systolic murmur (3+/ 6) Abdomen: non-tender, soft Skin: No rash Neuro/Psych: alert, normal mood/affect, oriented x 3 - Line/s RUE PICC Lines: No drainage, No erythema - Time Spent With Patient Time Spent with Patient: greater than 35 minutes Time Spent with Patient: Greater than 35 minutes spent on this patients care, greater than 50% of time spent counseling, educating, and coordinating care regarding the above mentioned plan. ICD10 Worksheet Patient Problems: Problems Problem Status Onset Mitral regurgitation Acute
--- NOTE | 2017-01-22 12:27 | PDIAF ---
- Diagnosis Code Status: Full Code - Medication Management Discharge Medications: Medications to Continue on Transfer DULoxetine [Cymbalta 60 MG (*)] 60 mg PO DAILY 01/14/17 [Last Taken 01/14/17] Levothyroxine Sodium [Levothyroxine Sodium] 137 mcg PO DAILY 01/14/17 [Last Taken 01/14/17] Lisinopril [Lisinopril] 10 mg PO DAILY 01/14/17 [Last Taken 01/14/17] traZODone HCL [Trazodone HCl] 300 mg PO HS PRN 01/14/17 [Last Taken Unknown] Budesonide [Uceris] 9 mg PO DAILY #30 tabdr...er 01/19/17 [Last Taken Unknown] Penitentiary Antibiotics: ceftriaxone 2gm IV daily Penitentiary Antibiotic Stop Date: 02/13/17 Discharge Medications: Refer to the Discharge Home Medication list for PRN reason. PICC Care - Routine: Yes - Labs/Radiology CBC Date: 01/26/17 (weekly) CMP Date: 01/26/17 (weekly) Call or Fax Lab and Imaging Results to: [phone] Dr Cohn - Follow Up Care Current Providers and Referrals: Patient,NotPresent [Primary Care Provider] - Juan R Cohn MD [Medical Doctor] - 01/30/17 11:30 am (Arrive at appointment at 11:15)
--- NOTE | 2017-01-22 16:10 | PDDCSUM ---
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 Please see below for complete details per problem list. At the time of admission he is stable, has no complaints, and has been cleared by all consultants. He will have F/U with ID at the end of next week. He will need f/u with Dr. Campuzano with cardiology in 2 weeks. DDX: Hypotension: Resolved. Will hold Lisinopril Streptoooccus Anginosus Bacterial endocarditis and Bacteremia * On IV ceftriaxone 2g daily through 02/13 * Conservative mgmt per Cards Reccs: If decompensates, consider treating surgically. Given his comorbidities, he is at high risk for surgical intervention * Id following: Will f/u with Dr. Cohn at the end of next week. * repeat BCX (01/16) cultures negative * PICC inserted * will need f/u TTE in the future which can be ordered once he f/u with Cards. He will f/u in 2 weeks. 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 STOPPED LISINOPRIL. SCRIPT FOR VALIUM PRN ANXIETY GIVEN. TOTAL CARE TIME SPENT ON DISCHARGE IS 35 MINS.
[2017-01-22] MEDS: LISINOPRIL 10 MG TAB PO SCH (17:04)
== END 2017-01-22 17:45 | disposition home or self-care (01) | DRG 289 ==
LOC: F2W 18:19
PROVIDERS: ADMIT Internal Medicine; ATTEND Family Medicine
PROC: 02HV33Z Insertion of Infusion Device into Superior Vena Cava, Percutaneous Approach (ICD-10-PCS; principal; 2017-01-20)
DX: I33.0 Acute and subacute infective endocarditis (principal); R78.81 Bacteremia; B95.5 Unspecified streptococcus as the cause of diseases classified elsewhere; I34.0 Nonrheumatic mitral (valve) insufficiency; Q76.1 Klippel-Feil syndrome; Q60.0 Renal agenesis, unilateral; K52.839 Microscopic colitis, unspecified; E03.9 Hypothyroidism, unspecified; F32.9 Major depressive disorder, single episode, unspecified; I10 Essential (primary) hypertension; G43.909 Migraine, unspecified, not intractable, without status migrainosus; Z87.891 Personal history of nicotine dependence
CPT/HCPCS: C1751; J0696; J1650; J3370; Q9967

== ENCOUNTER 2017-02-26 11:49 | Inpatient (IN) | payer OTHER ==
[2017-02-26] MEDS ORDERED: FAMOTIDINE 20 MG TAB PO ONE (12:02)
[2017-02-26] MEDS ORDERED: ASPIRIN EC 325 MG TAB PO ONE (12:02)
[2017-02-26] MEDS ORDERED: DIAZEPAM 5 MG TAB PO ONE (12:02)
[2017-02-26] MEDS ORDERED: NS 1,000 ML IV ONE (12:02)
[2017-02-26] MEDS ORDERED: diphenhydrAMINE 25 MG CAP PO ONE (12:02)
[2017-02-26 12:36] LABS: % IMMATURE GRANULYOCYTES 0.2 % (0.0-1.1); ABSOLUTE IMMATURE GRANULOCYTES 0.01 10^3/uL (0.00-0.10); ADD DIFF? NO; ADD MORPH? NO; ADD SCAN? NO; ATYPICAL LYMPHOCYTE FLAG 0 (0-99); FRAGMENT RBC FLAG 0 (0-99); HEMATOCRIT 39.3 % (40.0-51.0); HEMOGLOBIN 12.6 g/dL (13.7-17.5); LEFT SHIFT FLG 0 (0-99); LIPEMIA HEMOLYSIS FLAG 80 (0-99); MEAN CELL HEMOGLOBIN CONCENTR. 32.1 g/dL (32.4-36.7); MEAN CELL VOLUME 96.6 fL (81.5-99.8); PLATELET CLUMPS FLAG 10 (0-99); PLATELET COUNT 164 10^3/uL (150-400); RED BLOOD CELL COUNT 4.07 10^6/uL (4.40-6.38); RED CELL DISTRIBUTION WIDTH 14.3 % (11.5-15.2)
[2017-02-26 12:46] LABS: ANION GAP 11 mEq/L (8-16); CALCIUM 9.4 mg/dL (8.5-10.4); CARBON DIOXIDE 25 mEq/l (22-31); CHLORIDE 108 mEq/L (97-110); CHOLESTEROL 189 mg/dL (140-220); CHOLESTEROL/HDL RATIO 3.15 RATIO (1.00-4.97); CREATININE 0.7 mg/dL (0.7-1.3); GLOMERULAR FILTRATION RATE > 60; GLUCOSE 87 mg/dL (70-100); HIGH DENSITY LIPOPROTEIN 60 mg/dL (40-65); INR 0.96 (0.83-1.16); LDL/HDL RATIO 1.92 RATIO (1.00-3.64); LOW DENSITY LIPOPROTEIN 115 mg/dL (80-100); MAGNESIUM 1.8 mg/dL (1.6-2.3); NON-HIGH DENSITY LIPOPROTEIN 129 mg/dL (90-129); POTASSIUM 4.7 mEq/L (3.5-5.2); PROTIME(PATIENT) 12.7 SEC (12.0-15.0); SODIUM 144 mEq/L (134-144); TRIGLYCERIDE 71 mg/dL (40-150); VERY LOW DENSITY LIPOPROTEINS 14 mg/dL (8-25)
[2017-02-26] MEDS ORDERED: LIDOCAINE 1% 300 MG/30 ML SDV ONE (14:36)
[2017-02-26] MEDS ORDERED: MIDAZOLAM 2 MG/2 ML VIAL ONE (14:37)
[2017-02-26] MEDS ORDERED: IOPAMIDOL (ISOVUE-370) 150 ML BTL IV ONE (14:37)
[2017-02-26] MEDS ORDERED: fentaNYL 100 MCG/2 ML INJ ONE (14:37)
--- NOTE | 2017-02-26 15:20 | CPEKG ---
Heart Rate: 62 RR Interval: 968 P-R Interval: 180 QRSD Interval: 136 QT Interval: 440 QTC Interval: 447 P Independence: 65 QRS Independence: -59 T Wave Independence: 17 EKG Severity - ABNORMAL ECG - EKG Impression: SINUS RHYTHM EKG Impression: NONSPECIFIC IVCD WITH LAD EKG Impression: LEFT VENTRICULAR HYPERTROPHY EKG Impression: ANTERIOR Q WAVES, POSSIBLY DUE TO LVH Electronically Signed By: Reji Miranda 26-Feb-2017 17:16:20
[2017-02-26] MEDS ORDERED: ACETAMINOPHEN 325 MG TAB PO PRN (17:58)
--- NOTE | 2017-02-26 19:11 | CPIP ---
[f rep st] INVASIVE CARDIAC PROCEDURE DATE OF PROCEDURE: 02/26/2017 PROCEDURE: Coronary angiography. INDICATION: Preoperative evaluation prior to open heart surgery. ACCESS: Patient was prepped and draped in sterile fashion. 1% lidocaine was used to anesthetize th e right inguinal region. A 6-[place] introducer sheath was placed selectively into the right common femoral artery via modified Seldinger technique. CORONARY ANGIOGRAPHY: A 6-[place] JL4 was advanced to the left main coronary artery and images obtai dalton. The patient did not have a left main coronary artery. He, in fact, had dual ostia for the lef t anterior descending coronary artery and the circumflex coronary artery proper. The 6-[place] JL4 w as directed into the left anterior descending coronary artery and images obtained. The left anterio r descending coronary artery gave rise to 1 prominent branching diagonal artery as well as several s maller diagonal arteries. The left anterior descending coronary artery and its complement of diagon al arteries appeared normal. The 6-[place] JL4 was then counter-clockwise rotated into the circumfle x ostium and images obtained. The circumflex was dominant. The circumflex coronary artery gave ris e to 3 OM branches and posterolateral branches. The circumflex coronary artery appeared normal. A 6-[place] JR4 was advanced to the right coronary artery and images obtained. The right coronary shankar ry was nondominant. The right coronary artery appeared normal. LEFT VENTRICULOGRAPHY: Left ventriculography was not performed given patient's EF was known, and he has a vegetation on his mitral valve. COMPLICATIONS: None. CONCLUSIONS: Normal coronary arteries. /[id number]/MODL
[2017-02-26] MEDS ORDERED: TIZANIDINE HCL 4 MG PO PRN (21:00)
[2017-02-26] MEDS ORDERED: CHLORHEXIDINE GLUC HIBICLENS 118 ML BTL TP SCH (21:00)
[2017-02-26] MEDS: DIAZEPAM 5 MG TAB PO PRN (21:51)
[2017-02-26] MEDS: MUPIROCIN 2% 22 GM OINT NS SCH (21:51)
[2017-02-26] MEDS: MUPIROCIN 2% 22 GM OINT NS ONE (23:41)
[2017-02-27] MEDS ORDERED: PHENYLEPHRINE HCL 50 MG in NS 250 ML IV ONE (06:00)
[2017-02-27] MEDS ORDERED: INSULIN REGULAR HUMAN 100 UNIT in NS 100 ML IV ONE (06:00)
[2017-02-27] MEDS ORDERED: MANNITOL 25% 12.5 GM/50 ML VIAL IV ONE (06:00)
[2017-02-27] MEDS ORDERED: ceFAZolin 2 GM/DEXTROSE 100 ML IV ONE (06:00)
[2017-02-27] MEDS ORDERED: niCARdipine/NACL 200 ML IV SCH (06:00)
[2017-02-27] MEDS ORDERED: AMINOCAPROIC ACID 5 GM/20 ML VIAL IV ONE (06:00)
[2017-02-27] MEDS ORDERED: NOREPINEPHRINE BITARTRATE 16 MG in NS 250 ML IV ONE (06:00)
[2017-02-27] MEDS ORDERED: SODIUM BICARBONATE 20 MEQ, LIDOCAINE 1% 10 ML in NORMOSOL-R 1,000 ML MISC ONE (06:00)
[2017-02-27] MEDS ORDERED: CITRATE DEXTROSE SOLN 500 ML BAG MISC ONE (06:00)
[2017-02-27] MEDS ORDERED: LR 1,000 ML IV ONE (06:12)
[2017-02-27] MEDS ORDERED: PROTAMINE SULFATE 50 MG/5 ML VIAL IVP ONE (06:28)
[2017-02-27] MEDS ORDERED: CALCIUM CHLORIDE 1 GM/10 ML INJ ONE (06:28)
[2017-02-27] MEDS ORDERED: ALBUMIN 5% 250 ML BOTTLE IV ONE (06:28)
[2017-02-27] MEDS ORDERED: MILRINONE/DEXTROSE/100 ML BAG IV ONE (06:28)
[2017-02-27] MEDS ORDERED: DOPamine/DEXTROSE/250 ML BAG IV ONE (06:29)
[2017-02-27] MEDS ORDERED: POTASSIUM Cl (KCl) 20 MEQ/50 ML BAG IV ONE (06:29)
[2017-02-27] MEDS ORDERED: niCARdipine/NACL/200 ML BAG IV ONE (06:29)
[2017-02-27] MEDS ORDERED: LIDOCAINE 2% 100 MG/5 ML SYR ONE (06:29)
[2017-02-27] MEDS ORDERED: NA BICARBONATE 50 MEQ/50 ML VIAL ONE (06:29)
[2017-02-27] MEDS ORDERED: AMINOCAPROIC ACID 5 GM/20 ML VIAL ONE (06:29)
[2017-02-27] MEDS ORDERED: AMIODARONE HCL 150 MG/3 ML VIAL ONE (06:30)
[2017-02-27] MEDS ORDERED: MAGNESIUM SULFATE 1 GM/2 ML VIAL ONE (06:30)
[2017-02-27] MEDS ORDERED: methylPREDNISolone SOD SUCC 1 GM/8 ML VIAL ONE (06:30)
[2017-02-27] MEDS ORDERED: ADENOSINE 6 MG/2 ML VIAL ONE (06:30)
[2017-02-27] MEDS ORDERED: CITRATE DEXTROSE SOLN 500 ML BAG ONE (06:30)
[2017-02-27] MEDS ORDERED: ceFAZolin 1 GM VIAL ONE (06:31)
[2017-02-27] MEDS ORDERED: HEPARIN 10,000 UNIT/10 ML MDV ONE (06:31)
[2017-02-27] MEDS: MUPIROCIN 2% 22 GM OINT NS SCH ×2 (06:53→20:26)
[2017-02-27] MEDS ORDERED: MIDAZOLAM 2 MG/2 ML VIAL IVP ONE (06:56)
--- NOTE | 2017-02-27 06:58 | PDANEPAE ---
ANE History of Present Illness here for MVR ANE Past Medical History - Cardiovascular History Hx Hypertension: No Hx Arrhythmias: No Hx Chest Pain: No Hx Coronary Artery / Peripheral Vascular Disease: No Hx CHF / Valvular Disease: Yes Hx Palpitations: No Cardiovascular History Comment: MV ENDOCARDITIS. 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 NO ROTATOR CUFF ,LT KIDNEY. SCOLOSIS,THROAT ISSUES - GI History Hx Gastrointestinal Disorders: Yes Gastrointestinal History Comment: MICROSCOPIC COLITIS/SPASTIC COLON. GALL STONES - Other Health History Other Health History: SPINAL STENOSIS. NIGHT SWEATS. MUSCLE SPASMS LE - Chronic Pain History Chronic Pain: Yes (NEUROPATHY LEGS) - Surgical History Prior Surgeries: CERVICAL FUSION . RT CARPAL TUNNEL RELEASE 2013 [place] Review of Systems Review of systems is: negative - Exercise capacity Exercise capacity: >=4 METS METS (RN): 4 METS ANE Patient History - Allergies Allergies/Adverse Reactions: No Known Allergies Allergy (Unverified 02/13/12 12:50) - Home Medications Home medications: home medication list seen and reviewed Home Medications: Levothyroxine Sodium 137 mcg PO DAILY 01/14/17 [Last Taken 01/14/17] traZODone HCL [Trazodone HCl] 150 - 300 mg PO HS PRN 01/14/17 [Last Taken Unknown] Acetaminophen [Tylenol 325mg (*)] 325 mg PO Q4 PRN 02/23/17 [Last Taken Unknown] Amoxicillin 500 mg PO BID 02/23/17 [Last Taken Unknown] DULoxetine [Cymbalta 30 MG (*)] 30 mg PO DAILY 02/23/17 [Last Taken Unknown] Diazepam [Valium 5 MG (*)] 5 mg PO Q6HRS PRN 02/23/17 [Last Taken Unknown] Lisinopril [Zestril 10 mg (*)] 10 mg PO DAILY 02/23/17 [Last Taken Unknown] Naproxen 500 mg PO DAILY PRN 02/23/17 [Last Taken Unknown] Tizanidine HCl 4 mg PO HS 02/23/17 [Last Taken Unknown] - NPO status NPO Status: no food or drink >8 hours NPO Since - Liquids (Date): 02/27/17 NPO Since - Liquids (Time): 00:00 NPO Since - Solids (Date): 02/27/17 NPO Since - Solids (Time): 00:00 - Smoking Hx Smoking Status: Former smoker ANE Labs/Vital Signs - Labs Result Diagrams: 02/26/17 12:30 02/26/17 12:30 - Vital Signs Blood Pressure: 109/63 Heart Rate: 57 Respiratory Rate: 16 O2 Sat (%): 98 Height: 175 cm Weight: 76.5 kg ANE Physical Exam - Airway Neck exam: spinal fusion Mallampati Score: Class 4 Mouth exam: tan - Pulmonary Pulmonary: no respiratory distress - Cardiovascular Cardiovascular: regular rate and rhythym - ASA Status ASA Status: IV ANE Anesthesia Plan Anesthesia Plan: general endotracheal anesthesia Lines/Monitors: central line, [place]
[2017-02-27] MEDS ORDERED: fentaNYL 100 MCG/2 ML INJ ONE ×4 (07:03→08:18)
[2017-02-27] MEDS ORDERED: KETAMINE 100 MG/10 ML SYR ONE (07:05)
--- NOTE | 2017-02-27 07:06 | PDHPUP ---
History & Physical Update H&P update statement: This history and physical update is based on an assessment of the patient which was completed after admission or registration (within 24 hours), but prior to the surgery/procedure. H&P changes: Left dominant david system; no obstructive coronary or carotid disease
[2017-02-27] MEDS ORDERED: PROPOFOL/EMULSION 500 MG/50 ML BOTTLE IV ONE (07:07)
[2017-02-27] MEDS ORDERED: MINERAL OIL 10 ML VIAL ONE (07:12)
[2017-02-27] MEDS: MUPIROCIN 2% 22 GM OINT NS ONE (07:14)
[2017-02-27] MEDS ORDERED: DEXMEDETOMIDINE HCL 400 MCG in NS 100 ML IV ONE (09:00)
[2017-02-27] MEDS ORDERED: HYDROmorphONE/DILAUDID 2 MG/ML INJ ONE (09:40)
[2017-02-27] MEDS ORDERED: ONDANSETRON 4 MG/2 ML VIAL ONE (10:51)
--- NOTE | 2017-02-27 10:54 | POSTOPPROG ---
Post Op Note Date of Operation: 02/27/17 Surgeon: Jaylen Lyons Supervisor Public Health Nursing: Carrington Anesthesiologist: Eliu Anesthesia: GET(General Endotracheal) Pre-op Diagnosis: MR, endocarditis Inf/Abcess present in the surg proc area at time of surgery?: No EBL: Minimal Drains: Other (2 blakes)
[2017-02-27] MEDS ORDERED: ONDANSETRON DISINTEGRATING 4 MG TAB PO PRN (10:57)
[2017-02-27] MEDS ORDERED: D50W 25 GM/50 ML SYR IVP PRN (10:57)
[2017-02-27] MEDS ORDERED: POTASSIUM Cl (KCl) 50 ML IV PRN (10:57)
[2017-02-27] MEDS ORDERED: ONDANSETRON 4 MG/2 ML VIAL IVP PRN (10:57)
[2017-02-27] MEDS ORDERED: LACTULOSE 20 GM/30 ML UDCUP PO PRN (10:57)
[2017-02-27] MEDS ORDERED: POLYETHYLENE GLYCOL 3350 17 GM PKT PO PRN (10:57)
[2017-02-27] MEDS ORDERED: PANTOPRAZOLE SODIUM 40 MG in NS 100 ML IV ONE (10:57)
[2017-02-27] MEDS ORDERED: ACETAMINOPHEN 650 MG SUPP PR PRN (10:57)
[2017-02-27] MEDS ORDERED: BISACODYL 10 MG SUPP PR PRN (10:57)
[2017-02-27] MEDS ORDERED: MEPERIDINE 25 MG/ML SYR IVP PRN (10:57)
[2017-02-27] MEDS ORDERED: CEPACOL LOZENGE PO PRN (10:57)
[2017-02-27] MEDS ORDERED: MAGNESIUM SULF 2 GM/WATER 50 ML IV ONE (10:57)
[2017-02-27] MEDS ORDERED: MAGNESIUM HYDROXIDE 30 ML UDCUP PO PRN (10:57)
[2017-02-27] MEDS ORDERED: METOCLOPRAMIDE 10 MG/2 ML VIAL IVP PRN (10:57)
[2017-02-27] MEDS ORDERED: SODIUM CL NASAL 45 ML BTL EACHNARE PRN (10:57)
[2017-02-27] MEDS ORDERED: INSULIN REGULAR HUMAN 100 UNIT in NS 100 ML IV SCH (11:00)
[2017-02-27] MEDS ORDERED: NS 1,000 ML IV SCH (11:00)
[2017-02-27] MEDS ORDERED: ALTEPLASE 2 MG VIAL IVP PRN (11:12)
[2017-02-27] MEDS: ceFAZolin 2 GM/DEXTROSE 100 ML IV SCH ×2 (14:20→21:06)
[2017-02-27] MEDS ORDERED: ALBUMIN 5% 500 ML BOTTLE IV ONE (14:42)
--- NOTE | 2017-02-27 15:14 | GOP ---
[f rep st] OPERATIVE REPORT DATE OF OPERATION: 02/27/2017 SURGEON: Jaylen Lyons DO INSULATING MACHINE OPERATOR: ELEANOR José ANESTHESIOLOGIST: Sg Nowak MD PREOPERATIVE DIAGNOSIS: Healed mitral valve endocarditis, with persistent vegetation and severe carlos ral insufficiency. POSTOPERATIVE DIAGNOSIS: Healed mitral valve endocarditis, with persistent vegetation and severe mi tral insufficiency. PROCEDURE PERFORMED: Mitral valve replacement with a #29 Magna bioprosthesis. FINDINGS: DESCRIPTION OF PROCEDURE: Patient was treated for mitral endocarditis with severe mitral insufficie ncy. He was culture negative and returned for elective surgery for underlying severe MR and persist ent mobile vegetation. He was brought to the operating room, intubated, monitoring lines were place d. He was prepped and draped in sterile classical manner. Sternotomy was performed. The pericardi um was opened. The heart was cannulated, taking great care not to manipulate the heart prior to crop scout ss-clamping, due to the mobile vegetation. Cardioplegic arrest was obtained with antegrade and retr ograde cardioplegia, topical hypothermia and systemic cooling. The left atrium was opened through the right superior pulmonary vein. A mobile vegetation which alfredo eared to be, at this point, mostly scar tissue without obvious granulation tissue, was excised and s ent for culture. I attempted to repair the valve; however, too much leaflet had been destroyed. Fo r that reason, I ended up doing a chordal-sparing replacement, detaching the anterior leaflet and re -incorporating it at 8 and 4 o'clock in the valve replacement with interrupted 2-0 Tycron pledgeted mattress sutures. A 29 valve was seated. The left atrium was closed in the standard fashion. De-a iring was performed. The cross-clamp was removed with suction on the ascending aortic vent and LV s ump. When no further air was identified, the sump was removed. He was weaned from bypass. The heparin was reversed with protamine. The cannula was removed and oversewn. Two ventricular pac ing wires, 1 right pleural and 1 mediastinal drains were placed. The thymic fat and pericardium wer e closed. Chest was closed in standard fashion. The patient was returned to ICU in stable conditio n. /[id number]/MODL
[2017-02-27] MEDS ORDERED: SODIUM BICARBONATE 50 MEQ/50 ML SYR ONE (15:15)
[2017-02-27] MEDS: KETOROLAC 15 MG/1 ML SDV IVP SCH ×3 (16:31→23:37)
--- NOTE | 2017-02-27 16:47 | PCMIDPN ---
Assessment/Plan: MV endocarditis with streptococcus anginosus s/p ceftriaxone 2gm IV daily through 02/13 and then amoxicillin suppression, today underwent mitral valve replacement for severe mitral regurgitation - Surgery went well. --would resume ceftriaxone 03/01 after periop cefazolin (which would also cover s. anginosus), until valve cultures are negative -- PICC line was placed today --dc amoxicillin patient was briefly seen at bedside immediately prior to extubation.. He was awake interactive and appeared in no discomfort. He responded appropriately to questions. Case was discussed with Dr. Lyons Objective: Vital Signs Temp Pulse Resp BP Pulse Ox 36.6 C 62 10 L 109/63 100 02/27/17 06:45 02/27/17 14:26 02/27/17 14:26 02/27/17 06:58 02/27/17 14:26 Microbiology 02/27/17 08:52 Gram Stain - Final Heart - Tissue 02/27/17 08:52 Gram Stain - Final Heart - Tissue Laboratory Results 02/26/17 12:30 02/26/17 12:30 02/26/17 02/27/17 02/28/17 05:59 05:59 05:59 Intake Total 850 Balance 850 ICD10 Worksheet Patient Problems: Problems Problem Status Onset Acute blood loss anemia Acute S/P mitral valve replacement with bioprosthetic valve Acute ~02/27/17 Endocarditis of mitral valve Chronic Klippel-Feil syndrome Chronic Mitral regurgitation Chronic
--- NOTE | 2017-02-27 16:52 | POSTANESTH ---
Post Anesthetic Evaluation Cardiovascular Status: Normal, Stable Respiratory Status: Normal, Stable Level of Consciousness/Mental Status: Can Participate in Eval Pain Control: Adequate, Prn Tx Ordered Nausea/Vomiting Control: Adequate, Prn Tx Ordered Complications Possibly Related to Anesthesia: None Noted
[2017-02-27] MEDS ORDERED: NA BICARBONATE 50 MEQ/50 ML VIAL IV ONE (17:15)
--- NOTE | 2017-02-27 17:34 | GCON ---
[f rep st] CONSULTATION SCIENTIFIC RESEARCH ASSOCIATE CONSULTATION DATE OF CONSULTATION: 02/27/2017 The patient was examined postoperatively after receiving a mitral valve replacement for mitral valve endocarditis. The patient is a 56-year-old white male with a past medical history of endocarditis, hypothyroidism, and a difficult airway. He is examined postoperatively after receiving a mitral va lve replacement. Patient is currently sedated and on mechanical ventilation. All history is gleane d from the medical record. He has been followed by Infectious Disease, and has undergone a 4-week c ourse of ceftriaxone and then amoxicillin. PAST MEDICAL HISTORY: Again, significant for endocarditis, hypothyroidism. PAST SURGICAL HISTORY: He has had a C-spine fusion. ALLERGIES: No known allergies to medications. SOCIAL HISTORY: Previous heavy smoker, none for a year. No significant alcohol use. He is , has excellent family support. PHYSICAL EXAM: VITAL SIGNS: Blood pressure is 109/63, pulse 57, respiratory rate 16, temperature 3 6.6, oxygen saturation 98% on mechanical ventilation. GENERAL: He is a well-developed, well-nouris hed 56-year-old white male who is sedated and on mechanical ventilation. HEENT: Eyes, JURGEN, EOMI. Throat, endotracheal tube is in good position. NECK: Supple. There is no cervical adenopathy. H EART: Regular rate and rhythm with a 2/6 systolic murmur at the left sternal border without radiati on. LUNGS: Diminished breath sounds. No wheeze. ABDOMEN: Soft, nontender. Bowel sounds present in all 4 quadrants. EXTREMITIES: No clubbing, cyanosis, or edema. LABORATORIES: White count 6.6, hemoglobin 12, hematocrit 39, platelet count is 164. Sodium 144, po tassium 4.7, chloride 108, CO2 25, BUN 18, creatinine 0.7, glucose is 87. Chest x-ray shows endotra cheal tube in good position, otherwise normal. IMPRESSION: 1. Endocarditis. 2. Status post mitral valve replacement. 3. Hypothyroidism. 4. Acute respiratory failure secondary to surgery. RECOMMENDATIONS: 1. Wean from mechanical ventilation when tolerated. 2. DVT and PE prophylaxis, holding anticoagulation for now. 3. Stress ulcer prophylaxis. 4. Aggressive blood sugar control. 5. Early ambulation. 6. PT and OT. /[id number]/MODL
[2017-02-27] MEDS: ALBUMIN 5% 250 ML IV PRN (19:15)
[2017-02-27 19:27] LABS: CALCULATED OXYGEN SATURATION 95 % (92-95)
[2017-02-27 19:27] LABS: CALCULATED OXYGEN SATURATION 94 % (92-95)
[2017-02-27] MEDS ORDERED: ALBUMIN 5% 250 ML IV ONE (20:00)
[2017-02-28] MEDS: fentaNYL 100 MCG/2 ML INJ IVP PRN ×3 (00:06→10:16)
[2017-02-28] MEDS: ALBUMIN 5% 250 ML IV PRN (00:17)
[2017-02-28 05:31] LABS: % IMMATURE GRANULYOCYTES 0.4 % (0.0-1.1); ABSOLUTE IMMATURE GRANULOCYTES 0.05 10^3/uL (0.00-0.10); ADD DIFF? NO; ADD MORPH? NO; ADD SCAN? NO; ATYPICAL LYMPHOCYTE FLAG 10 (0-99); FRAGMENT RBC FLAG 0 (0-99); HEMATOCRIT 25.2 % (40.0-51.0); HEMOGLOBIN 7.9 g/dL (13.7-17.5); LEFT SHIFT FLG 0 (0-99); LIPEMIA HEMOLYSIS FLAG 80 (0-99); MEAN CELL HEMOGLOBIN 31.3 pg (27.9-34.1); MEAN CELL HEMOGLOBIN CONCENTR. 31.3 g/dL (32.4-36.7); MEAN PLATELET VOLUME 10.2 fL (8.7-11.7); PLATELET CLUMPS FLAG 10 (0-99); PLATELET COUNT 66 10^3/uL (150-400); RED BLOOD CELL COUNT 2.52 10^6/uL (4.40-6.38); RED CELL DISTRIBUTION WIDTH 14.6 % (11.5-15.2)
[2017-02-28 05:42] LABS: ANION GAP 8 mEq/L (8-16); CALCIUM 8.2 mg/dL (8.5-10.4); CARBON DIOXIDE 24 mEq/l (22-31); CHLORIDE 107 mEq/L (97-110); CREATININE 0.7 mg/dL (0.7-1.3); GLOMERULAR FILTRATION RATE > 60; GLUCOSE 88 mg/dL (70-100); POTASSIUM 4.9 mEq/L (3.5-5.2); SODIUM 139 mEq/L (134-144)
[2017-02-28] MEDS: ceFAZolin 2 GM/DEXTROSE 100 ML IV SCH ×3 (05:50→22:14)
[2017-02-28] MEDS ORDERED: HEPARIN 5,000 UNIT/0.5 ML SYR SC SCH (06:00)
[2017-02-28] MEDS: KETOROLAC 15 MG/1 ML SDV IVP SCH ×2 (06:05→13:38)
[2017-02-28] MEDS ORDERED: DIAZEPAM 10 MG/2 ML SYR IVP ONE (07:45)
--- NOTE | 2017-02-28 07:58 | SOAPPROG ---
SOAP Progress Note Assessment/Plan: Assessment: POD#1 MVR 29mm Magna bioprosthesis RUE PICC MV endocarditis w post leaflet veg and severe MR - 4 wk course of targeted IV Abx completed, maintained on Amox suppression until surgery. Valvular repair not feasible and replacement with tissue valve. Await intraop cx results to determine need for addtl Abx. ID following. Hemodynamically stable early postop course without vasoactive support, dysrhythmias, or backup pacing. Adequately autodiuresing modest volume overload w stable renal fx. Antithrombotic prophylaxis with Coumadin x 3 mo. Target INR 2-3. Acute expected blood loss anemia w thrombocytopenia - Stable. No evidence active bleeding. Care with VTE prophylaxis and anticoag while platelets depressed. 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 Extubated without incident. Care with orals. Multimodal analgesia. Anticipate IPR vs SNF for rehab. Plan: Routine POD#1 orders re lines, drains, and mobility. Strict NPO until cleared by PERSONAL HEALTH COACH. Resume chronic analgesics when able. Keep CTs to suction. Keep in ICU today. 02/28/17 07:57 Subjective: Hanging in there. Severe back spasms earlier, waiting for valium to kick in. No nausea or dizziness OOB. Objective: Vital Signs Temp Pulse Resp BP Pulse Ox 37 C 72 15 111/48 L 94 02/28/17 05:00 02/28/17 07:00 02/28/17 07:00 02/28/17 07:00 02/28/17 07:00 Microbiology 02/27/17 08:52 Gram Stain - Final Heart - Tissue 02/27/17 08:52 Gram Stain - Final Heart - Tissue Laboratory Results 02/28/17 05:15 02/28/17 05:15 02/27/17 02/28/17 03/01/17 05:59 05:59 05:59 Intake Total 850 2391.7 Output Total 2175 85 Balance 850 216.7 -85 PT 12.7 SEC (12.0-15.0) 02/26/17 12:30 INR 0.96 (0.83-1.16) 02/26/17 12:30 Stable HR, rhythm and MAPs. Min suppl O2 req. Balanced I/Os w excellent UOP. Modest CTOP. +AL w cough. CXR -> no PTX, no pulm vasc congestion, no undrained effusions. Labs ok. H/H, plt sl lower than expected. Physical Exam - Physical Exam General Appearance: alert, mild distress (tense posture) Respiratory: crackles (bases, o/w fairly CTA), other (blakes y-d to pleurovac, serosang drainage, 1 chamber air leak w cough) Cardiac/Chest: regular rate, rhythm, other (Sternotomy CDI. V wires intact) Abdomen: other (sl distended, hypoactive BS) Skin: warm/dry Extremities: other (no visible edema) ICD10 Worksheet Patient Problems: Problems Problem Status Onset Acute blood loss anemia Acute Coronary artery disease (CAD) excluded Acute S/P mitral valve replacement with bioprosthetic valve Acute ~02/27/17 Endocarditis of mitral valve Chronic Klippel-Feil syndrome Chronic Mitral regurgitation Chronic
[2017-02-28] MEDS ORDERED: ASPIRIN 81 MG CHEWABLE TAB TUBE PRN (09:00)
--- NOTE | 2017-02-28 09:02 | PDINTPN ---
Cna Ltc Progress Note Assessment/Plan: Assessment/Plan: * Mitral valve endocarditis * Status post mitral valve replacement * Pain-moderately controlled * Respiratory-stable off mechanical ventilation * History of hypothyroidism * VT prophylaxis * Stress ulcer prophylaxis * Nutrition-on hold until cleared by speech Subjective: Sitting up in chair. Complaining of pain. Denies any dyspnea at this time. He states he is hungry Objective: Vital Signs Temp Pulse Resp BP Pulse Ox 37 C 72 20 107/48 L 97 02/28/17 05:00 02/28/17 08:00 02/28/17 08:00 02/28/17 08:00 02/28/17 08:00 Microbiology 02/27/17 08:52 Gram Stain - Final Heart - Tissue 02/27/17 08:52 Gram Stain - Final Heart - Tissue Laboratory Results 02/28/17 05:15 02/28/17 05:15 02/27/17 02/28/17 03/01/17 05:59 05:59 05:59 Intake Total 850 2391.7 Output Total 2175 85 Balance 850 216.7 -85 PT 12.7 SEC (12.0-15.0) 02/26/17 12:30 INR 0.96 (0.83-1.16) 02/26/17 12:30 Physical Exam - Physical Exam General Appearance: WD/WN, alert, mild distress EENT: PERRL/EOMI, normal ENT inspection, pharynx normal Neck: non-tender, full range of motion, supple, normal inspection Respiratory: chest non-tender, lungs clear, normal breath sounds Cardiac/Chest: normal peripheral pulses, regular rate, rhythm, systolic murmur Peripheral Pulses: 2+: carotid (R), carotid (L), femoral (R), femoral (L), dorsalis-pedis (R), dorsalis-pedis (L) Abdomen: normal bowel sounds, non-tender, soft Male Genitalia: deferred Rectal: deferred Skin: normal color, warm/dry ICD10 Worksheet Patient Problems: Problems Problem Status Onset Acute blood loss anemia Acute Coronary artery disease (CAD) excluded Acute S/P mitral valve replacement with bioprosthetic valve Acute ~02/27/17 Endocarditis of mitral valve Chronic Klippel-Feil syndrome Chronic Mitral regurgitation Chronic
[2017-02-28] MEDS: HYDROCODONE/APAP 5/325 TAB PO PRN ×3 (10:57→19:54)
[2017-02-28] MEDS: ASPIRIN 81 MG CHEWABLE TAB PO SCH (11:21)
[2017-02-28] MEDS: PANTOPRAZOLE SODIUM 40 MG TAB PO SCH (11:26)
[2017-02-28] MEDS: MUPIROCIN 2% 22 GM OINT NS SCH ×2 (13:37→19:54)
[2017-02-28] MEDS: DIAZEPAM 5 MG TAB PO PRN ×2 (13:37→19:55)
[2017-02-28] MEDS: traMADol 50 MG TAB PO PRN ×2 (17:37→22:21)
[2017-02-28] MEDS: SENNOSIDES/DOCUSATE SODIUM TAB PO SCH (19:54)
[2017-03-01] MEDS: DIAZEPAM 5 MG TAB PO PRN ×2 (02:48→20:18)
[2017-03-01] MEDS: HYDROCODONE/APAP 10/325 TAB PO PRN ×2 (02:48→07:31)
[2017-03-01] MEDS: traMADol 50 MG TAB PO PRN (06:01)
[2017-03-01 06:11] LABS: % IMMATURE GRANULYOCYTES 0.5 % (0.0-1.1); ABSOLUTE IMMATURE GRANULOCYTES 0.05 10^3/uL (0.00-0.10); ADD DIFF? NO; ADD MORPH? NO; ADD SCAN? NO; ATYPICAL LYMPHOCYTE FLAG 0 (0-99); FRAGMENT RBC FLAG 0 (0-99); HEMOGLOBIN 7.4 g/dL (13.7-17.5); LEFT SHIFT FLG 0 (0-99); LIPEMIA HEMOLYSIS FLAG 80 (0-99); MEAN CELL HEMOGLOBIN 31.1 pg (27.9-34.1); MEAN CELL HEMOGLOBIN CONCENTR. 30.8 g/dL (32.4-36.7); MEAN CELL VOLUME 100.8 fL (81.5-99.8); MEAN PLATELET VOLUME 10.8 fL (8.7-11.7); PLATELET CLUMPS FLAG 10 (0-99); PLATELET COUNT 62 10^3/uL (150-400); RED BLOOD CELL COUNT 2.38 10^6/uL (4.40-6.38); RED CELL DISTRIBUTION WIDTH 14.9 % (11.5-15.2)
[2017-03-01 06:21] LABS: INR 1.09 (0.83-1.16)
[2017-03-01 06:41] LABS: ANION GAP 6 mEq/L (8-16); CALCIUM 8.4 mg/dL (8.5-10.4); CARBON DIOXIDE 28 mEq/l (22-31); CHLORIDE 99 mEq/L (97-110); CREATININE 0.6 mg/dL (0.7-1.3); GLOMERULAR FILTRATION RATE > 60; GLUCOSE 102 mg/dL (70-100); POTASSIUM 4.4 mEq/L (3.5-5.2); SODIUM 133 mEq/L (134-144)
[2017-03-01] MEDS ORDERED: POTASSIUM CL 20 MEQ TAB PO ONE (09:00)
[2017-03-01] MEDS ORDERED: FUROSEMIDE 40 MG/4 ML VIAL IVP ONE (09:00)
--- NOTE | 2017-03-01 09:15 | SOAPPROG ---
SOAP Progress Note Assessment/Plan: Assessment: POD#2 MVR 29mm Magna bioprosthesis RUE [facility]. 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 Maintained on Amox suppression until surgery. Valvular repair not feasible after P2 (veg) debridement and replacement with tissue valve. One of two intraop cxs with rare strep anginosus growth. ID following. 2nd course of IV Ceftriaxone started. Remains hemodynamically stable. No sig fluid overload. AF prophylaxis with BB as tolerated. Antithrombotic prophylaxis with Coumadin x 3 mo. Target INR 2.5. Range 2.5-3.5. Acute expected blood loss anemia w thrombocytopenia - Stable. No evidence active bleeding. Downward drift likely dilutional (+2 kg last 24h). Care with VTE prophylaxis and anticoag while platelets depressed. 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 Extubated without incident. No dysphagia by swallow eval. Multimodal analgesia. Plans on staying with sister for 1-2 weeks after discharge. Plan: Begin daily diuresis. Trial Lasix 40mg IV. CTs to bulb suction. Start Coumadin. 5 mg today. Start metoprolol 12.5 mg tonight w conservative hold parameters. Optimize analgesia. Cont inc activity as tolerated. Dispo - Anticipate home in 2-3 days. 03/01/17 09:14 Subjective: Fell behind on pain control and currently uncomfortable. Otherwise, slept decently, eating small meals, and tolerating light activity w min assistance. Objective: Vital Signs Temp Pulse Resp BP Pulse Ox 36.7 C 77 20 120/58 L 97 03/01/17 07:11 03/01/17 07:11 03/01/17 07:11 03/01/17 07:11 03/01/17 07:11 Microbiology 02/27/17 08:52 Gram Stain - Final Heart - Tissue 02/27/17 08:52 Gram Stain - Final Heart - Tissue Laboratory Results 03/01/17 06:00 03/01/17 06:00 02/28/17 03/01/17 03/02/17 05:59 05:59 05:59 Intake Total 2391.7 2025 Output Total 2175 1015 425 Balance 216.7 1010 -425 PT 14.0 SEC (12.0-15.0) 03/01/17 06:00 INR 1.09 (0.83-1.16) 03/01/17 06:00 HR, rhythm and BP stable. Min suppl O2 req. CTOP thin. Air leak appears to have resolved. Positive fluid balance, +7 kg overall. Gram stain no orgs. Prelim cx 1 of 2 specimens (probable P2 w veg) with rare s. anginosus. Physical Exam - Physical Exam General Appearance: alert, mild distress Respiratory: decreased breath sounds (bases), other (blakes x 2 y-d to pleurovac , serosang drainage, +tidal, no AL w good cough) Cardiac/Chest: regular rate, rhythm, friction rub, other (Sternum grossly stable. Sternotomy CDI. Vwires intact.) Abdomen: non-tender, soft Skin: warm/dry Extremities: swelling (1+ dependent) ICD10 Worksheet Patient Problems: Problems Problem Status Onset Acute blood loss anemia Acute Coronary artery disease (CAD) excluded Acute S/P mitral valve replacement with bioprosthetic valve Acute ~02/27/17 Endocarditis of mitral valve Chronic Klippel-Feil syndrome Chronic Mitral regurgitation Chronic
[2017-03-01] MEDS: LEVOTHYROXINE 137 MCG TAB PO SCH (09:29)
[2017-03-01] MEDS: PANTOPRAZOLE SODIUM 40 MG TAB PO SCH (09:29)
[2017-03-01] MEDS: SENNOSIDES/DOCUSATE SODIUM TAB PO SCH ×2 (09:30→20:15)
[2017-03-01] MEDS: DULoxetine 30 MG CAP PO SCH (09:30)
[2017-03-01] MEDS: ASPIRIN 81 MG CHEWABLE TAB PO SCH (09:45)
[2017-03-01] MEDS: cefTRIAXone 2 GM in D5W 50 ML IV SCH (09:46)
[2017-03-01] MEDS ORDERED: KETOROLAC 30 MG/1 ML SDV IVP ONE (09:48)
[2017-03-01] MEDS: oxyCODONE IR 5 MG TAB PO PRN ×2 (13:46→19:01)
[2017-03-01] MEDS ORDERED: WARFARIN SODIUM 5 MG TAB PO ONE (16:00)
--- NOTE | 2017-03-01 16:42 | PCMIDPN ---
Assessment/Plan: Assessment/Plan: 1. MV endocarditis with streptococcus anginosus- s/p ceftriaxone 2gm IV daily through 02/13 and then amoxicillin suppression: - s/p MVR on 02/27/17 -REcieved Ancef periop/post op and now on Ceftriaxone -Valve cultures now showing rare Strep Anginosus -Will need to stay on Ceftriaxone for full course of therapy given that. -Results and plan of care reviewed with patient today. Meds Cefttraixone 2g daily Subjective: afebrile. feels tired. denies sob, abd pain. denies diarrhea. Objective: Vital Signs Temp Pulse Resp BP Pulse Ox 37.0 C 76 20 105/58 L 98 03/01/17 15:27 03/01/17 15:27 03/01/17 15:27 03/01/17 15:27 03/01/17 15:27 Microbiology 02/27/17 08:52 Gram Stain - Final Heart - Tissue 02/27/17 08:52 Gram Stain - Final Heart - Tissue Laboratory Results 03/01/17 06:00 03/01/17 06:00 02/28/17 03/01/17 03/02/17 05:59 05:59 05:59 Intake Total 2391.7 2025 1500 Output Total 2175 1015 1590 Balance 216.7 1010 -90 - Physical Exam General Appearance: alert, no apparent distress Respiratory: coarse breath sounds (mild) Cardiac/Chest: regular rate, rhythm, systolic murmur, other (midline chest incision site intact,no erythema, non drainage. ) Extremities: No swelling Abdomen: normal bowel sounds, non-tender, soft, No distended Skin: No erythema ICD10 Worksheet Patient Problems: Problems Problem Status Onset Acute blood loss anemia Acute Coronary artery disease (CAD) excluded Acute S/P mitral valve replacement with bioprosthetic valve Acute ~02/27/17 Endocarditis of mitral valve Chronic Klippel-Feil syndrome Chronic Mitral regurgitation Chronic
[2017-03-01] MEDS: HYDROmorphONE/DILAUDID 2 MG TAB PO PRN ×2 (17:46→21:25)
[2017-03-01] MEDS ORDERED: AMIODARONE HCL 200 ML IV ONE (20:41)
[2017-03-01] MEDS ORDERED: AMIODARONE HCL 100 ML IV ONE (20:41)
[2017-03-01] MEDS ORDERED: METOPROLOL TARTRATE 25 MG TAB PO SCH (21:00)
[2017-03-02] MEDS ORDERED: AMIODARONE HCL 540 MG in D5W 300 ML IV ONE (03:00)
[2017-03-02 04:23] LABS: HEMATOCRIT 24.5 % (40.0-51.0); HEMOGLOBIN 7.6 g/dL (13.7-17.5); MEAN CELL HEMOGLOBIN 30.9 pg (27.9-34.1); MEAN CELL VOLUME 99.6 fL (81.5-99.8); RED BLOOD CELL COUNT 2.46 10^6/uL (4.40-6.38); RED CELL DISTRIBUTION WIDTH 14.3 % (11.5-15.2)
[2017-03-02 04:32] LABS: INR 1.31 (0.83-1.16); POTASSIUM 4.4 mEq/L (3.5-5.2); PROTIME(PATIENT) 16.3 SEC (12.0-15.0)
[2017-03-02] MEDS: oxyCODONE IR 5 MG TAB PO PRN ×4 (06:12→21:21)
--- NOTE | 2017-03-02 07:31 | SOAPPROG ---
SOAP Progress Note Assessment/Plan: Assessment: POD#3 MVR 29mm Magna bioprosthesis RUE PICC. 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 Maintained on Amox suppression until surgery. Valvular repair not feasible after P2 (veg) debridement and replacement undertaken with tissue valve. One of two intraop cxs with rare strep anginosus growth. ID following. 2nd course of IV Ceftriaxone started. Remains hemodynamically stable. No sig fluid overload. AF prophylaxis with BB as tolerated. Antithrombotic prophylaxis with Coumadin x 3 mo. Target INR 2.5. Range 2.5-3.5. Adjunctive baby ASA until INR stable in therapeutic range. Postop PAF - with VVR, no sustained RVR or hypotension. SR restored on amio as per protocol. Insufficient BP to uptitrate BB. Antithrombotic prophylaxis as per MVR. Acute expected blood loss anemia w thrombocytopenia - Stable. No evidence active bleeding. Downward drift likely dilutional (+2 kg last 24h). Care with VTE prophylaxis and anticoag while platelets depressed. 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 Extubated without incident. No dysphagia by swallow eval. Multimodal analgesia. Plans on staying with sister for 1-2 weeks after discharge. Plan: [employer] to assess for dietary advancement. Transition IV amio to orals tonight. Mediastinal drain removed. Cont Coumadin 5 mg daily. Cont metoprolol 12.5 mg BID w conservative hold parameters. Cont inc activity as tolerated. Dispo - Anticipate home in 2 days. 03/02/17 07:26 Subjective: Doing alright. Improved pain control. Only c/o unhappy with pureed diet and would like regular food. Objective: Vital Signs Temp Pulse Resp BP Pulse Ox 36.7 C 65 18 97/66 L 96 03/02/17 06:30 03/02/17 06:30 03/02/17 06:30 03/02/17 06:30 03/02/17 06:30 Microbiology 02/27/17 08:52 Gram Stain - Final Heart - Tissue 02/27/17 08:52 Gram Stain - Final Heart - Tissue Laboratory Results 03/02/17 04:15 03/02/17 04:15 03/01/17 03/02/17 03/03/17 05:59 05:59 05:59 Intake Total 2024 2010 Output Total 1015 2170 Balance 1010 -159 PT 16.3 SEC (12.0-15.0) H 03/02/17 04:15 INR 1.31 (0.83-1.16) H 03/02/17 04:15 Development of AF w CVR last noc. Asx. SR promptly restored on amio. Current rhythm sinus with IVCD and 1st degree AVB. Borderline suppl O2 req, desatting to 84% RA but > 92% on 1 liter O2. CXR-> atelectatic bases, sm left pl effusion. CTOP approaching removal criteria. Labs ok. Plt appear to be rebounding. Appropriate rise in INR. Physical Exam - Physical Exam General Appearance: alert, no apparent distress Respiratory: decreased breath sounds (left base), other (blakes x 2 to bulb suction, thin serosang drainage; med tube d/cd without incident.) Cardiac/Chest: regular rate, rhythm, other (Sternum grossly stable. Sternotomy CDI. Vwire intact) Abdomen: non-tender, soft Skin: warm/dry Extremities: swelling (trace) ICD10 Worksheet Patient Problems: Problems Problem Status Onset Acute blood loss anemia Acute Coronary artery disease (CAD) excluded Acute Postoperative atrial fibrillation Acute S/P mitral valve replacement with bioprosthetic valve Acute ~02/27/17 Endocarditis of mitral valve Chronic Klippel-Feil syndrome Chronic Mitral regurgitation Chronic
[2017-03-02] MEDS: METOPROLOL TARTRATE 25 MG TAB PO SCH ×2 (09:04→21:21)
[2017-03-02] MEDS: HYDROmorphONE/DILAUDID 2 MG TAB PO PRN ×2 (09:22→13:03)
[2017-03-02] MEDS: cefTRIAXone 2 GM in D5W 50 ML IV SCH (09:42)
[2017-03-02] MEDS: LEVOTHYROXINE 137 MCG TAB PO SCH (09:43)
[2017-03-02] MEDS: PANTOPRAZOLE SODIUM 40 MG TAB PO SCH (09:43)
[2017-03-02] MEDS: DULoxetine 30 MG CAP PO SCH (09:43)
[2017-03-02] MEDS: ASPIRIN 81 MG CHEWABLE TAB PO SCH (09:43)
[2017-03-02] MEDS: SENNOSIDES/DOCUSATE SODIUM TAB PO SCH (09:43)
--- NOTE | 2017-03-02 10:27 | PCMIDPN ---
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 Await susceptibility profile of Streptococcus anginosus. Initial isolate was susceptible to penicillin and ceftriaxone. Continue ceftriaxone in interim. Stop date for antibiotic therapy will be . 03/02/17 10:25 Subjective: Patient with sternal discomfort postoperatively otherwise without complaints. Objective: Vital Signs Temp Pulse Resp BP Pulse Ox 37.2 C 66 14 97/55 L 94 03/02/17 08:20 03/02/17 08:20 03/02/17 08:20 03/02/17 08:20 03/02/17 09:37 Microbiology 02/27/17 08:52 Gram Stain - Final Heart - Tissue 02/27/17 08:52 Gram Stain - Final Heart - Tissue Laboratory Results 03/02/17 04:15 03/02/17 04:15 03/01/17 03/02/17 03/03/17 05:59 05:59 05:59 Intake Total 2024 2010 Output Total 1015 2170 Balance 1010 -159 Ceftriaxone # 2 Valve culture with growth of Streptococcus anginosus, susceptibility pending - Physical Exam General Appearance: alert, no apparent distress EENT: No conjunctival petechiae Respiratory: other (Decreased breath sounds right base) Cardiac/Chest: regular rate, rhythm, other (Sternotomy without erythema or drainage) Abdomen: non-tender, No distended Skin: No embolic lesions ICD10 Worksheet Patient Problems: Problems Problem Status Onset Acute blood loss anemia Acute Coronary artery disease (CAD) excluded Acute Postoperative atrial fibrillation Acute S/P mitral valve replacement with bioprosthetic valve Acute ~02/27/17 Endocarditis of mitral valve Chronic Klippel-Feil syndrome Chronic Mitral regurgitation Chronic
[2017-03-02 11:35] LABS: ALBUMIN 3.3 g/dL (3.5-5.0); BILIRUBIN,TOTAL 0.3 mg/dL (0.1-1.4); BILIRUBIN-CONJUGATED 0.3 mg/dL (0.0-0.5); TOTAL PROTEIN 5.4 g/dL (6.3-8.2)
[2017-03-02] MEDS ORDERED: FUROSEMIDE 20 MG/2 ML VIAL IVP ONE (15:00)
[2017-03-02] MEDS ORDERED: POTASSIUM CL 10 MEQ TAB PO ONE (15:00)
[2017-03-02] MEDS ORDERED: KETOROLAC 15 MG/1 ML SDV IVP ONE (15:05)
[2017-03-02 15:32] LABS: POTASSIUM 4.4 mEq/L (3.5-5.2)
[2017-03-02] MEDS ORDERED: WARFARIN SODIUM 5 MG TAB PO ONE (16:00)
[2017-03-02] MEDS: AMIODARONE HCL 200 MG TAB PO SCH (20:05)
[2017-03-02] MEDS ORDERED: SENNOSIDES/DOCUSATE SODIUM TAB PO PRN (21:00)
[2017-03-03] MEDS: oxyCODONE IR 5 MG TAB PO PRN ×4 (07:16→21:42)
[2017-03-03 07:29] LABS: HEMATOCRIT 24.8 % (40.0-51.0); HEMOGLOBIN 7.9 g/dL (13.7-17.5)
[2017-03-03 07:39] LABS: INR 2.07 (0.83-1.16); PROTIME(PATIENT) 23.4 SEC (12.0-15.0)
--- NOTE | 2017-03-03 07:51 | SOAPPROG ---
SOAP Progress Note Assessment/Plan: Assessment: POD#4 MVR 29mm Magna bioprosthesis RUE PICC. 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 Maintained on Amox suppression until surgery. Valvular repair not feasible after P2 (veg) debridement and replacement undertaken with tissue valve. One of two intraop cxs with rare strep anginosus growth. ID following. 2nd course of IV Ceftriaxone started. Remains hemodynamically stable. No sig fluid overload. AF prophylaxis with BB as tolerated. Antithrombotic prophylaxis with Coumadin x 3 mo. Target INR 2.5. Range 2.5-3.5. Adjunctive baby ASA until INR stable in therapeutic range. Postop PAF - with VVR, no sustained RVR or hypotension. SR restored on amio as per protocol. Insufficient BP to uptitrate BB. Antithrombotic prophylaxis as per MVR. Acute expected blood loss anemia w thrombocytopenia - Stable. No evidence active bleeding. Care with anticoag while platelets depressed. 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 Extubated without incident. No dysphagia by swallow eval. Multimodal analgesia. Plans on staying with sister for 1-2 weeks after discharge. Plan: Cont amio 200 mg BID. Cont metoprolol 12.5 mg BID w conservative hold parameters. Switch to oral diuresis. Consider removal pleural drain later today. Decrease Coumadin to 2.5 mg today. Baseline postop echo. Cont inc activity as tolerated. Dispo - Anticipate home in 1-2 days w [facility]. 03/03/17 07:48 Subjective: Feels ok. Adequate analgesia. Pleased with advancement of diet. +BM. Looking forward to a shower. No acute concerns. Objective: Vital Signs Temp Pulse Resp BP Pulse Ox 36.4 C 71 20 122/67 H 92 03/03/17 07:41 03/03/17 07:41 03/03/17 07:41 03/03/17 07:41 03/03/17 07:41 Microbiology 02/27/17 08:52 Gram Stain - Final Heart - Tissue 02/27/17 08:52 Gram Stain - Final Heart - Tissue Laboratory Results 03/03/17 06:55 03/02/17 15:05 03/02/17 03/03/17 03/04/17 05:59 05:59 05:59 Intake Total 2010 1599 Output Total 2170 1255 Balance -159 -145 PT 23.4 SEC (12.0-15.0) H 03/03/17 06:55 INR 2.07 (0.83-1.16) H 03/03/17 06:55 Holding SR. BP controlled. Min suppl O2 req. Adequate fluid balance. CTOP approaching removal criteria. H/H stable. INR on the rise. - Pending Discharge Pending Discharge Within 48 Hours: Yes Pending Discharge Date: 03/05/17 Pending Discharge Time: 11:00 Physical Exam - Physical Exam General Appearance: alert, no apparent distress Respiratory: lungs clear, other (violeta x 1 to bulb suction, thin serosang drainage) Cardiac/Chest: regular rate, rhythm, other (Sternotomy CDI) Abdomen: non-tender, soft Skin: warm/dry Extremities: swelling (trace) ICD10 Worksheet Patient Problems: Problems Problem Status Onset Acute blood loss anemia Acute Coronary artery disease (CAD) excluded Acute Postoperative atrial fibrillation Acute S/P mitral valve replacement with bioprosthetic valve Acute ~02/27/17 Endocarditis of mitral valve Chronic Klippel-Feil syndrome Chronic Mitral regurgitation Chronic
[2017-03-03] MEDS: cefTRIAXone 2 GM in D5W 50 ML IV SCH (08:32)
[2017-03-03] MEDS: DULoxetine 30 MG CAP PO SCH (08:33)
[2017-03-03] MEDS: ASPIRIN 81 MG CHEWABLE TAB PO SCH (08:33)
[2017-03-03] MEDS: LEVOTHYROXINE 137 MCG TAB PO SCH (08:33)
[2017-03-03] MEDS: AMIODARONE HCL 200 MG TAB PO SCH ×2 (08:33→21:42)
[2017-03-03] MEDS: PANTOPRAZOLE SODIUM 40 MG TAB PO SCH (08:33)
[2017-03-03] MEDS: FUROSEMIDE 40 MG TAB PO SCH ×2 (08:33→16:24)
[2017-03-03] MEDS: POTASSIUM CL 20 MEQ TAB PO SCH ×2 (08:33→21:43)
[2017-03-03] MEDS: METOPROLOL TARTRATE 25 MG TAB PO SCH ×2 (08:34→21:42)
--- NOTE | 2017-03-03 11:31 | ECHO ---
[id number] + + [address] : : [place] [address] : : [phone] + + Adult Echocardiographic Report + -------+ :Name: ROBI HELMS WStudy Date: 03/03/2017 09:47 AM : : Hospital Admission Number: [id number] Locati on: 206: :: 1960 Gender: Male Height: 69 in : :Age: 56 yrs Race: WH Weight: 183 lb : :Reason For Study: S/P MVR #29 magna bovine valve : : BSA: 2.0 meter s2 : :History: MV endocarditis : + -------+ MMode/2D Measurements \T\ Calculations IVSd: 1.3 cm LVIDd: 5.6 cm FS: 25.7 % Ao root diam: LVPWd: 0.85 cm LVIDs: 4.2 cm EDV(Teich): 3.8 cm 155.6 ml LA dimension: ESV(Teich): 4.4 cm 77.8 ml EF(Teich): 50.0 % LVLd ap4: 8.5 cm SV(MOD-sp4): EDV(MOD-sp4): 56.0 ml 97.0 ml LVLs ap4: 7.2 cm ESV(MOD-sp4): 41.0 ml EF(MOD-sp4): 57.7 % Normal Measurement Values: + + :LVIDd (3.5-5.7cm) IVSd (0.6-1.1cm) LVPWd (0.6-1.1cm) Aortic Root (2.0-3.7cm)Left Atrium (1.5-4.0cm): :LV Vol(d) (76-115ml) LV Vol(s) (29-48ml) Ejec Fraction (50-65%)PV Erickson (0.6- 1.2m/s) TV Erickson (0.4-1.0m/s) : :MV E Erickson (0.8-1.0m/s)MV A Erickson (0.3-1.0m/s)LVOT Erickson (0.7-1.2m/s) Asc Ao Erickson ( 0.9-1.8m/s) : + + Doppler Measurements \T\ Calculations MV E max erickson: MV V2 max: Ao mean PG: TR max erickson: 160.2 cm/sec 164.2 cm/sec 5.2 mmHg 221.3 cm/sec MV A max erickson: MV max PG: Ao V2 mean: TR max P.2 cm/sec 10.8 mmHg 109.1 cm/sec 19.6 mmHg MV E/A: 1.3 MV V2 mean: Ao V2 VTI: 30.7 cmRAP systole: 116.4 cm/sec 5.0 mmHg MV mean PG: RVSP(TR): 5.8 mmHg 24.6 mmHg MV V2 VTI: 46.7 cm Left Ventricle The left ventricle is normal in size. There is normal left ventricular wall thickness. Left ventricular systolic function is normal. Ejection Fraction = 60-65%. Septal motion is consistent with post-operative state. Right Ventricle The right ventricle is normal in size and function. Atria The left atrium is moderately dilated. Right atrial size is normal. The interatrial septum is intact with no evidence for an atrial septal defect. Mitral Valve There is trace mitral regurgitation. There is a bioprosthetic mitral valve. MV mean PG is 6mmHG. Tricuspid Valve Normal tricuspid valve. There is trace tricuspid regurgitation. Right ventricular systolic pressure is normal. Aortic Valve The aortic valve is trileaflet. The aortic valve opens well. There is no aortic stenosis. Trace to mild aortic regurgitation. Pulmonic Valve The pulmonic valve is not well visualized. There is no pulmonic valvular regurgitation. Great Vessels The aortic root is normal size. Pericardium/Pleural There is no pericardial effusion. Conclusion A complete two-dimensional transthoracic echocardiogram was performed (2D, M-mode, Doppler and color flow Doppler). Left ventricular systolic function is normal. Ejection Fraction = 60-65%. Septal motion is consistent with post-operative state. The left atrium is moderately dilated. MV mean PG is 6mmHG. There is trace mitral regurgitation. Trace to mild aortic regurgitation. Final Reading Physician: Jennifer Kaur signed on 03/03/2017 11:29 AM Ordering Physician: Josy Shultz Performed By: Faby Lozada RDCS
--- NOTE | 2017-03-03 14:14 | PCMIDPN ---
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 Streptococcus anginosus remains susceptible to penicillin and ceftriaxone. Continue ceftriaxone with weekly CBC and CMP. Stop date for antibiotic therapy will be 04/10/17. 03/03/17 14:11 Subjective: Patient complains of fatigue. Objective: Vital Signs Temp Pulse Resp BP Pulse Ox 36.8 C 68 16 110/56 L 92 03/03/17 11:42 03/03/17 11:42 03/03/17 11:42 03/03/17 11:42 03/03/17 11:42 Microbiology 02/27/17 08:52 Gram Stain - Final Heart - Tissue 02/27/17 08:52 Gram Stain - Final Heart - Tissue Laboratory Results 03/03/17 06:55 03/02/17 15:05 03/02/17 03/03/17 03/04/17 05:59 05:59 05:59 Intake Total 2010 1599 Output Total 2170 174 1120 Balance -159 -145 -1120 Ceftriaxone # 3 Valve culture with Streptococcus anginosus which is susceptible to penicillin and ceftriaxone - Physical Exam General Appearance: alert, no apparent distress EENT: No conjunctival petechiae Respiratory: lungs clear, No respiratory distress Cardiac/Chest: regular rate, rhythm, other (Sternotomy intact without erythema) , No systolic murmur Abdomen: non-tender, No distended ICD10 Worksheet Patient Problems: Problems Problem Status Onset Acute blood loss anemia Acute Coronary artery disease (CAD) excluded Acute Postoperative atrial fibrillation Acute S/P mitral valve replacement with bioprosthetic valve Acute ~02/27/17 Endocarditis of mitral valve Chronic Klippel-Feil syndrome Chronic Mitral regurgitation Chronic
--- NOTE | 2017-03-03 14:18 | PDIAF ---
- Diagnosis Diagnosis: Endocarditis Code Status: Full Code - Medication Management Discharge Medications: Medications to Continue on Transfer Levothyroxine Sodium 137 mcg PO DAILY 01/14/17 [Last Taken 01/14/17] traZODone HCL [Trazodone HCl] 150 - 300 mg PO HS PRN 01/14/17 [Last Taken Unknown] Budesonide [Uceris] 9 mg PO DAILY #30 tabdr...er 01/19/17 [Last Taken Unknown] Acetaminophen [Tylenol 325mg (*)] 325 mg PO Q4 PRN 02/23/17 [Last Taken Unknown] Amoxicillin 500 mg PO BID 02/23/17 [Last Taken Unknown] DULoxetine [Cymbalta 30 MG (*)] 30 mg PO DAILY 02/23/17 [Last Taken Unknown] Diazepam [Valium 5 MG (*)] 5 mg PO Q6HRS PRN 02/23/17 [Last Taken Unknown] Lisinopril [Zestril 10 mg (*)] 10 mg PO DAILY 02/23/17 [Last Taken Unknown] Naproxen 500 mg PO DAILY PRN 02/23/17 [Last Taken Unknown] Tizanidine HCl 4 mg PO HS 02/23/17 [Last Taken Unknown] Assisted Antibiotics: Ceftriaxone 2 g IV Q 24 hours Assisted Antibiotic Stop Date: 04/10/17 Discharge Medications: Refer to the Discharge Home Medication list for PRN reason. PICC Care - Routine: Yes - Labs/Radiology CBC Date: 03/09/17 (Weekly Q Thursday) CMP Date: 03/09/17 (Weekly Q Thursday) Call or Fax Lab and Imaging Results to: Dr. Cohn [phone] - Follow Up Care Current Providers and Referrals: ROBI ALVARES [Primary Care Provider] - Juan R Cohn MD [Medical Doctor] - 03/12/17 11:30 am
[2017-03-03] MEDS: HYDROmorphONE/DILAUDID 2 MG TAB PO PRN (14:24)
[2017-03-03] MEDS ORDERED: WARFARIN SODIUM 2.5 MG TAB PO ONE (16:00)
[2017-03-04] MEDS: oxyCODONE IR 5 MG TAB PO PRN ×2 (06:38→14:15)
[2017-03-04 06:51] LABS: HEMATOCRIT 24.9 % (40.0-51.0)
[2017-03-04 06:54] LABS: ANION GAP 8 mEq/L (8-16); CALCIUM 8.6 mg/dL (8.5-10.4); CARBON DIOXIDE 31 mEq/l (22-31); CHLORIDE 95 mEq/L (97-110); CREATININE 0.6 mg/dL (0.7-1.3); GLOMERULAR FILTRATION RATE > 60; GLUCOSE 97 mg/dL (70-100); POTASSIUM 4.3 mEq/L (3.5-5.2); SODIUM 134 mEq/L (134-144)
[2017-03-04 07:09] LABS: PROTIME(PATIENT) 22.8 SEC (12.0-15.0)
[2017-03-04 07:31] VITALS: PULSE 78
[2017-03-04] MEDS: POTASSIUM CL 20 MEQ TAB PO SCH (08:02)
[2017-03-04] MEDS: DULoxetine 30 MG CAP PO SCH (08:02)
[2017-03-04] MEDS: LEVOTHYROXINE 137 MCG TAB PO SCH (08:02)
[2017-03-04] MEDS: PANTOPRAZOLE SODIUM 40 MG TAB PO SCH (08:02)
[2017-03-04] MEDS: METOPROLOL TARTRATE 25 MG TAB PO SCH (08:02)
[2017-03-04] MEDS: ASPIRIN 81 MG CHEWABLE TAB PO SCH (08:03)
[2017-03-04] MEDS: AMIODARONE HCL 200 MG TAB PO SCH (08:04)
[2017-03-04] MEDS: FUROSEMIDE 40 MG TAB PO SCH (08:04)
--- NOTE | 2017-03-04 08:30 | SOAPPROG ---
SOAP Progress Note Assessment/Plan: Assessment: POD#5 MVR 29mm Magna bioprosthesis RUE PICC. 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 Maintained on Amox suppression until surgery. Valvular repair not feasible after P2 (veg) debridement and replacement undertaken with tissue valve. One of two intraop cxs with rare strep anginosus growth. ID following. 2nd course of IV Ceftriaxone started. Remains hemodynamically stable. No sig fluid overload. Tubes and wires out. AF prophylaxis with BB as tolerated. Antithrombotic prophylaxis with Coumadin x 3 mo. Target INR 2.5. Range 2.5-3.5. Adjunctive baby ASA until INR stable in therapeutic range. Postop PAF - with VVR, no sustained RVR or hypotension. SR restored on amio as per protocol. Use limited by prolonged QTc. Insufficient BP to uptitrate BB. Antithrombotic prophylaxis as per MVR. Acute expected blood loss anemia w thrombocytopenia - Stable. No evidence active bleeding. Care with anticoag while platelets depressed. 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 Extubated without incident. No dysphagia by swallow eval. Multimodal analgesia. Plan: Discharge on hold d/t out of pocket expense for home care. SNF evaluation in progress. Self care not yet feasible d/t sternal stresses of daily public transportation to infusion center for Abx. Cont metoprolol 12.5 mg BID. Decr lasix to 40 mg daily. Coumadin 3 mg today. 03/04/17 08:29 Subjective: Feels fine. "Bummed" about going to SNF but can't afford home care. Objective: Vital Signs Temp Pulse Resp BP Pulse Ox 36.8 C 78 16 119/51 L 86 L 03/04/17 07:28 03/04/17 07:28 03/04/17 07:28 03/04/17 07:28 03/04/17 07:32 Microbiology 02/27/17 08:52 Gram Stain - Final Heart - Tissue 02/27/17 08:52 Gram Stain - Final Heart - Tissue Laboratory Results 03/04/17 06:30 03/04/17 06:30 03/03/17 03/04/17 03/05/17 05:59 05:59 05:59 Intake Total 1600 1800 Output Total 1745 2019 Balance -145 -220 PT 22.8 SEC (12.0-15.0) H 03/04/17 06:30 INR 2.00 (0.83-1.16) H 03/04/17 06:30 Echo yest: Nl BiV size and systolic fx. LVEF > 60%. Nl bioprosthetic MV fx. Mod LAE. Nl rt atrial size. Trace TR. Holding SR. QTc noted to be > 500 and amio stopped. Nearly off O2. Adequate fluid balance. Stable labs. - Pending Discharge Pending Discharge Within 24 Hours: Yes Pending Discharge Date: 03/05/17 Pending Discharge Time: 11:00 Physical Exam - Physical Exam General Appearance: alert, no apparent distress Respiratory: lungs clear (grossly) Cardiac/Chest: regular rate, rhythm, other (Sternum grossly stable. Sternotomy CDI.) Abdomen: soft Skin: warm/dry Extremities: swelling (trace) ICD10 Worksheet Patient Problems: Problems Problem Status Onset Acute blood loss anemia Acute Coronary artery disease (CAD) excluded Acute Postoperative atrial fibrillation Acute S/P mitral valve replacement with bioprosthetic valve Acute ~02/27/17 Endocarditis of mitral valve Chronic Klippel-Feil syndrome Chronic Mitral regurgitation Chronic
[2017-03-04] MEDS: cefTRIAXone 2 GM in D5W 50 ML IV SCH (09:05)
[2017-03-04 11:45] VITALS: BP 99/54; RESP 12; TEMP 98.1; O2SAT 96
[2017-03-04] MEDS ORDERED: oxyCODONE IR 5 MG TAB PO PRN (12:00)
--- NOTE | 2017-03-04 15:34 | PDHOMEO2F ---
Home Oxygen Face to Face Home Orders: I certify that a physician or a nurse practitioner or physician's preschool assistant teacher has had a [id number] encounter with this patient on the date of this order due to the diagnosis listed, which relates to the primary reason the patient requires home oxygen. Alternative treatments have been tried, or considered, and deemed ineffective. It is anticipated that supplemental oxygen will result in improvement with treatment. 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 Likely, 1 month Length of time home oxygen needed: 1 month Home Oxygen Comment: titration per visiting nurse or cardiac rehab
[2017-03-04] MEDS ORDERED: WARFARIN SODIUM 3 MG TAB PO ONE (16:00)
--- NOTE | 2017-03-04 16:00 | PDIAF ---
- Diagnosis Diagnosis: Endocarditis s/p MVR with a bioprosthesis, Klippel Feil syndrome Code Status: Full Code - Medication Management Discharge Medications: Medications to Continue on Transfer Levothyroxine Sodium 137 mcg PO DAILY 01/14/17 [Last Taken 01/14/17] traZODone HCL [Trazodone HCl] 150 - 300 mg PO HS PRN 01/14/17 [Last Taken Unknown] Budesonide [Uceris] 9 mg PO DAILY #30 tabdr...er 01/19/17 [Last Taken Unknown] DULoxetine [Cymbalta 30 MG (*)] 30 mg PO DAILY 02/23/17 [Last Taken Unknown] Diazepam [Valium 5 MG (*)] 5 mg PO Q6HRS PRN 02/23/17 [Last Taken Unknown] Tizanidine HCl 4 mg PO HS 02/23/17 [Last Taken Unknown] Acetaminophen [Tylenol 325mg (*)] 325 mg PO Q4 PRN #0 03/04/17 [Last Taken Unknown] Alteplase [Cathflo Activase 2 mg (*)] 2 mg IVP PRN PRN #0 vial 03/04/17 [Last Taken Unknown] D5w 50 ml IV DAILY #0 bag 03/04/17 [Last Taken Unknown] Furosemide [Lasix 40 MG (*)] 40 mg PO DAILY #20 tab 03/04/17 [Last Taken Unknown ] Metoprolol Tartrate [Lopressor 25 mg (*)] 12.5 mg PO BID #60 tab 03/04/17 [Last Taken Unknown] Potassium Cl [Klor-Con 20 meq (*)] 20 meq PO DAILY #0 tab 03/04/17 [Last Taken Unknown] Warfarin Sodium [Coumadin 3MG (*)] 3 mg PO ONCE@16 #30 tab 03/04/17 [Last Taken Unknown] cefTRIAXone [Rocephin] 2 gm IV DAILY #0 vial 03/04/17 [Last Taken Unknown] oxyCODONE IR [Oxycodone Ir (*)] 10 mg PO Q4-8PRN PRN #50 tab 03/04/17 [Last Taken Unknown] House Calls Nurse Antibiotics: Ceftriaxone 2 g IV Q 24 hours House Calls Nurse Antibiotic Stop Date: 04/10/17 Discharge Medications: Refer to the Discharge Home Medication list for PRN reason. PICC Care - Routine: Yes - Orders Services needed: Registered Nurse (PICC care, cardiorespiratory monitoring, therapeutic drug monitoring), Physical Therapy (sternal precautions), Occupational Therapy (functional mobility) Oxygen: prn SpO2 < 90% Diet Recommendation: no restrictions on diet, fluid restriction (use comment for amount) (2 qts (2,000 ml) daily) Diet Texture: Regular Texture Diet Weigh Patient: daily Lucio: Not applicable Wound Care Instructions: daily soap and water. avoid ointments until eschar off. avoid underwater immersion until eschar off Activity/Weight Bearing Restrictions: No lifting > 8 lbs with an outstretched arm. Avoid push pull activities. Additional: Call [facility] ([place]) for resting HR < 60 or > 120, SBP < 90 or > 150, wt gain > 2 lbs overnoc or 5 lbs overall, progressive leg swelling, supplemental O2 requirement > 5 Lpm, or any wound concerns - Labs/Radiology CBC Date: 03/09/17 (Weekly Q Thursday) CMP Date: 03/09/17 (Weekly Q Thursday) PT/INR Date: 03/06/17 (2x weekly, thu and thu) Imaging Orders: CXR prior to surgical appointment Call or Fax Lab and Imaging Results to: Dr. Cohn [phone]; INRs to [facility] attn Radha Rojas - Follow Up Care Current Providers and Referrals: Jaylen Lyons DO [Doctor of Osteopathy] - 03/10/17 1:30 pm ROBI ALVARES [Primary Care Provider] - Yves Hills MD [Medical Doctor] - (Follow up in 6-8 weeks. Appointment to be established during surgical visit.) Juan R Cohn MD [Medical Doctor] - 03/12/17 11:30 am
--- NOTE | 2017-03-04 16:56 | PDIAF ---
- Diagnosis Diagnosis: Endocarditis s/p MVR with a bioprosthesis, Klippel Feil syndrome Code Status: Full Code - Medication Management Discharge Medications: Medications to Continue on Transfer Levothyroxine Sodium 137 mcg PO DAILY 01/14/17 [Last Taken 01/14/17] traZODone HCL [Trazodone HCl] 150 - 300 mg PO HS PRN 01/14/17 [Last Taken Unknown] Budesonide [Uceris] 9 mg PO DAILY #30 tabdr...er 01/19/17 [Last Taken Unknown] DULoxetine [Cymbalta 30 MG (*)] 30 mg PO DAILY 02/23/17 [Last Taken Unknown] Diazepam [Valium 5 MG (*)] 5 mg PO Q6HRS PRN 02/23/17 [Last Taken Unknown] Tizanidine HCl 4 mg PO HS 02/23/17 [Last Taken Unknown] Acetaminophen [Tylenol 325mg (*)] 325 mg PO Q4 PRN #0 03/04/17 [Last Taken Unknown] Alteplase [Cathflo Activase 2 mg (*)] 2 mg IVP PRN PRN #0 vial 03/04/17 [Last Taken Unknown] Aspirin [Aspirin 81mg (*)] 81 mg PO DAILY #0 tab.chew 03/04/17 [Last Taken Unknown] D5w 50 ml IV DAILY #0 bag 03/04/17 [Last Taken Unknown] Furosemide [Lasix 40 MG (*)] 40 mg PO DAILY #20 tab 03/04/17 [Last Taken Unknown ] Metoprolol Tartrate [Lopressor 25 mg (*)] 12.5 mg PO BID #60 tab 03/04/17 [Last Taken Unknown] Potassium Cl [Klor-Con 20 meq (*)] 20 meq PO DAILY #0 tab 03/04/17 [Last Taken Unknown] Warfarin Sodium [Coumadin 3MG (*)] 3 mg PO ONCE@16 #30 tab 03/04/17 [Last Taken Unknown] cefTRIAXone [Rocephin] 2 gm IV DAILY #0 vial 03/04/17 [Last Taken Unknown] oxyCODONE IR [Oxycodone Ir (*)] 10 mg PO Q4-8PRN PRN #50 tab 03/04/17 [Last Taken Unknown] [facility] Antibiotics: Ceftriaxone 2 g IV Q 24 hours [facility] Antibiotic Stop Date: 04/10/17 Discharge Medications: Refer to the Discharge Home Medication list for PRN reason. PICC Care - Routine: Yes - Orders Services needed: Registered Nurse (PICC care, cardiorespiratory monitoring, therapeutic drug monitoring), Physical Therapy (sternal precautions), Occupational Therapy (functional mobility) Oxygen: prn SpO2 < 90% Diet Recommendation: no restrictions on diet, fluid restriction (use comment for amount) (2 qts (2,000 ml) daily) Diet Texture: Regular Texture Diet Weigh Patient: daily Lucio: Not applicable Wound Care Instructions: daily soap and water. avoid ointments until eschar off. avoid underwater immersion until eschar off Activity/Weight Bearing Restrictions: No lifting > 8 lbs with an outstretched arm. Avoid push pull activities. Additional: Call [facility] ([place]) for resting HR < 60 or > 120, SBP < 90 or > 150, wt gain > 2 lbs overnoc or 5 lbs overall, progressive leg swelling, supplemental O2 requirement > 5 Lpm, or any wound concerns - Labs/Radiology CBC Date: 03/09/17 (Weekly Q Thursday) CMP Date: 03/09/17 (Weekly Q Thursday) PT/INR Date: 03/06/17 (2x weekly, thu and thu) Imaging Orders: CXR prior to surgical appointment Call or Fax Lab and Imaging Results to: Dr. Cohn [phone]; INRs to [facility] attn Radha Rojas - Follow Up Care Current Providers and Referrals: Jaylen Lyons DO [Doctor of Osteopathy] - 03/10/17 1:30 pm ROBI ALVARES [Primary Care Provider] - Yves Hills MD [Medical Doctor] - (Follow up in 6-8 weeks. Appointment to be established during surgical visit.) Juan R Cohn MD [Medical Doctor] - 03/12/17 11:30 am
--- NOTE | 2017-03-04 17:05 | PDDCSUM ---
Discharge Summary Discharge Summary: DATE OF ADMISSION: 02/26/17 DATE OF DISCHARGE: 03/04/17 DISPOSITION: Home with home healthcare, RN and PT/OT PRINCIPAL ADMISSION DIAGNOSIS: 1. Severe mitral regurgitation 2. Treated mitral valve endocarditis PRINCIPAL DISCHARGE DIAGNOSES: 1. Coronary artery disease excluded 2. Carotid atherosclerosis, mild 3. Status post mitral valve replacement with a bioprosthesis 4. Subacute mitral valve endocarditis by intraop cultures 4. Acute expected blood loss anemia with thrombocytopenia 5. Postoperative paroxysmal atrial fibrillation 6. 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 4 wk course of IV Ceftriaxone completed and maintained on Amoxicillin suppression while awaiting MVR. No interim heart failure or dysrhythmias. Preop imaging negative for CAD or prohibitive neurologic risk. PERTINENT PAST MEDICAL HISTORY: 1. 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 2. Hypothyroidism 3. HTN 4. Microcolitis - treated with budesonide. 5. Migraine headaches MEDICATIONS ON ADMISSION: Amoxicillin 500 mg BID, Levothyroxine 137 mcg daily, Budesonide 9 mg daily, Cymbalta 30 mg daily, Tizanidine 4 mg hs, Lisinopril 10 mg daily, Naproxen 500 mg daily prn, Tylenol 325 mg q4h prn, Diazepam 5 mg q6h prn, Trazodone 150 -300 mg hs prn. ALLERGIES/SENSITIVITIES: NKDA CONSULTANTS: Cardiology (Ruth), Pulmonology/critical care (Vineet), Infectious Diseases ( Lauren), Interventional radiology (Jerry) PROCEDURES/IMAGIN/3 (Ruth): Left heart catheterization with selective coronary angiography. Access via right common femoral artery. 02/26 Carotid Ultrasound 02/27 ([place]rena): Mitral valve replacement with a 29mm Rodriguez Magna bovine pericardial bioprosthesis. 02/27 (Jerry): Placement of a RUE PICC 03/03 (Reinier): Transthoracic echocardiogram: Nl BiV size and systolic fx, LVEF 60-65%. Nl bioprosthetic MV fx. Mod LAE. ABBREVIATED HOSPITAL COURSE BY ACTIVE PROBLEM LIST: 1. Treated MV endocarditis w residual vegetation and severe MR - Valvular repair not feasible after P2 (veg) debridement and replacement undertaken with tissue valve. One of two intraop cxs with rare strep anginosus growth and 2nd course of IV Ceftriaxone started by ID. Otherwise stable postop course. Extubated without incident. No dysphagia by [employer]INE[employer] surveillance. No sig fluid overload. Antithrombotic prophylaxis with Coumadin x 3 mo. Target INR 2.5. Range 2.5-3.5. Adjunctive baby ASA until INR stable in therapeutic range. 2. Postop PAF - with VVR, no sustained RVR or hypotension. SR restored on low dose BB and amio. Ongoing use of amio limited by prolonged QTc. Insufficient BP to uptitrate BB. Antithrombotic prophylaxis as per MVR. 3. Acute expected blood loss anemia w thrombocytopenia - Stable. No transfusions needed. Appropriate platelet rebound noted. 4. Acute on chronic pain - Responsive to multimodal analgesia. Steady functional recovery and independence. Skilled for home by PT. DISCHARGE CLINICAL INFORMATION: Sternum grossly stable. Sternotomy CDI, sutured, +Dermabond. HR 60s-70s. SBP 100s-110s. SpO2 86% RA, correcting to > 92% on 2 Lpm O2. Wt 2.1 kg above admission at 78.9 kilos. WBC 6.25, Hgb 8, HCT 24.9, Plt 72, Na 134, K 4.3, Cr 0.6 Coumadin flow sheet: Date INR mg 03/01 1.09 5 87 1.31 5 8/8 2.07 2.5 8 2.0 3 DISCHARGE MEDICATIONS: As on admission with the following adjustments: 1. Stop Amoxicillin. 2. Hold Lisinopril. 3. Avoid Naproxen while on Coumadin. NEW prescriptions: 1. Metoprolol 12.5 mg BID. 2. Coumadin 3 mg daily or as directed by INR. 3. Lasix 40 mg daily until back to baseline weight and no swelling. 4. KlorCon 20 mEq daily with Lasix. 5. Oxycodone IR 10 mg 1/2 to 1 tab q 4-8hrs prn incisional discomfort. 6. Oxygen @ 2 Lpm continuously or as directed by SpO2. 7. Ceftriaxone 2 gm IV thru 04/10/17. OTC: ASA 81 mg daily until INR stable in therapeutic range. Hold for INR > 3. FOLLOW UP APPOINTMENTS: 1. CV surgery: with Dr Lyons at [facility] on 03/10 at 1:30 pm. 2. Cardiology: with Dr Hills at [facility] within 6-8 weeks. Appointment to be established during surgical visit. 3. Infectious Diseases: with Dr Cohn on 03/12 at 11:30 am. FOLLOW UP TESTIN. INR 03/06 and then 2x weekly, on Mon and Fri. Results to [facility]. 2. CBC & CMP weekly, on Thu. Results to Dr Cohn. 3. CXR prior to surgical appointment.
[2017-03-05] MEDS ORDERED: POTASSIUM CL 20 MEQ TAB PO SCH (09:00)
[2017-03-05] MEDS ORDERED: FUROSEMIDE 40 MG TAB PO SCH (09:00)
== END 2017-03-04 17:46 | disposition home health service (06) | DRG 216 ==
LOC: UNDOADMIN 11:49 → FCATH 11:49 → F3E 11:49 → F2W 15:20 → EDSTATUS 02-27 07:15 → F2N 02-27 10:32 → F2W 02-28 17:22
PROVIDERS: ADMIT Internal Medicine Cardiovascular Disease; ATTEND Thoracic Surgery (Cardiothoracic Vascular Surgery)
DX: I34.0 Nonrheumatic mitral (valve) insufficiency (principal); I33.0 Acute and subacute infective endocarditis; B95.4 Other streptococcus as the cause of diseases classified elsewhere; D62 Acute posthemorrhagic anemia; Q76.1 Klippel-Feil syndrome; E03.9 Hypothyroidism, unspecified; I10 Essential (primary) hypertension; K52.839 Microscopic colitis, unspecified; D69.6 Thrombocytopenia, unspecified; I48.0 Paroxysmal atrial fibrillation
CPT/HCPCS: 82947-QW; 92526-GN; 92610-GN; 97116-GP; 97161-GP; 97165-GO; 97530-GO; 97535-GO; C1751; C1760; G8978-GP-CK; G8979-GP-CI; G8987-GO-CM; G8988-GO-CI; G8996-GN-CI; G8996-GN-CK; G8997-GN-CI; G8998-GN-CI; J0153; J0282; J0690; J0696; J1170; J1265; J1644; J1815; J1885; J1940; J2001; J2150; J2250; J2260; J2370; J2405; J2704; J2720; J2930; J2997; J3010; J7060; P9041; Q9967

== ENCOUNTER → 2017-03-17 | Outpatient (CLI) | payer OTHER | LOC: FIMAGING 13:53 → FLAB 13:53 → EDSTATUS 13:59 | PROVIDERS: ATTEND Thoracic Surgery (Cardiothoracic Vascular Surgery) | DX: Z48.89 Encounter for other specified surgical aftercare (principal); Z95.1 Presence of aortocoronary bypass graft ==